=== PATIENT | male | born 1960 | race Two or more races ===

== ENCOUNTER 2016-05-09 19:07 | Inpatient (IN) | payer MEDICAID ==
[~2016-05-09] VITALS: Ht 172.7 cm; Wt 63.0 kg
[2016-05-09 19:30] VITALS: BP 92/60
[2016-05-09] MEDS ORDERED: AMANTADINE50 MG/5 ML GT (19:55)
[2016-05-09] MEDS ORDERED: AMLODIPINE BESYL5 MG GT (19:55)
[2016-05-09] MEDS ORDERED: CATAPRES0.1 MG GT (19:55)
[2016-05-09] MEDS ORDERED: LIORESAL20 MG GT (19:55)
[2016-05-09] MEDS ORDERED: Acetaminophen 650mg/20.3ml ONE (20:31)
[2016-05-09 20:37] LABS: MEAN CORPUSCULAR HEMOGLOBIN 31.6 PG (27.0-31.0); MEAN CORPUSCULAR HGB CONC 32.8 G/DL (32.0-36.0); MEAN CORPUSCULAR VOLUME 96 FL (80-99); MEAN PLATELET VOLUME 5.4 FL (6.5-10.1); PLATELET COUNT 239 K/UL (150-450); RED BLOOD COUNT 5.22 M/UL (4.70-6.10); RED CELL DISTRIBUTION WIDTH 13.6 % (11.6-14.8); WHITE BLOOD COUNT 18.2 K/UL (4.8-10.8)
[2016-05-09] MEDS ORDERED: Azithromycin 500 MG in NS 275 ML IV ONE (20:45)
[2016-05-09] MEDS ORDERED: cefTRIAXone 1 GM in NS 55 ML IVPB ONE (20:45)
[2016-05-09 20:48] LABS: ALANINE AMINOTRANSFERASE 160 U/L (3-41); ALBUMIN/GLOBULIN RATIO 0.8 (1.0-2.7); ANION GAP 18 (5-15); ASPARTATE AMINO TRANSFERASE 135 U/L (5-40); CALCIUM 9.4 mg/dL (8.6-10.2); CARBON DIOXIDE 23 mEQ/L (20-30); CHLORIDE 105 mEQ/L (98-107); CREATININE 0.7 mg/dL (0.7-1.2); GLOMERULAR FILTRATION RATE > 60 mL/min (>60); HEMOLYSIS 62; POTASSIUM 4.1 mEQ/L (3.4-4.9); SODIUM 146 mEQ/L (135-145); TOTAL PROTEIN 6.6 g/dL (6.6-8.7)
[2016-05-09 20:53] LABS: REFLEX LACTIC ACID YES OR NO YES
[2016-05-09 20:59] LABS: TROPONIN I < 0.30 ng/mL (<=0.30)
--- NOTE | 2016-05-09 21:10 | Emergency Room Report ---
History of Present Illness General Chief Complaint: Altered Level of Consciousness Source: Family Member, Medical Record Present Illness HPI 55 YO M sent from SNF for more altered than usual. Patient aphasic since CVA a few months ago, s/p trach and Gtube. Vitals significant for fever 104 [place], tachycardic, hypotensive. Patient incontinent of urine. Allergies: Coded Allergies: No Known Allergies (Unverified , 05/09/16) Patient History Past Medical History: CVA/TIA Past Surgical History: other - trach/PEG Pertinent Family History: unable to obtain Social History: Denies: alcohol use, drug use, smoking Immunizations: UTD Reviewed Nursing Documentation: PMH: Agreed, PSxH: Agreed Nursing Documentation-PMH Hx Hypertension: Yes Review of Systems All Other Systems: limited - aphasic since CVA Physical Exam Vital Signs Date Time Temp Pulse Resp B/P Pulse Ox O2 Delivery O2 Flow Rate FiO2 05/09/16 19:07 98.4 130 30 89/59 96 Trach Collar 4.0 Sp02 EP Interpretation: reviewed, abnormal General Appearance: normal inspection, well appearing, no apparent distress, alert, GCS 15, non-toxic Head: normocephalic, atraumatic Eyes: bilateral eye EOMI, bilateral eye PERRL ENT: normal ENT inspection, normal pharynx, no angioedema, other - trach mask in place. No mucous plugs Neck: normal inspection, full range of motion, supple, no bony tend Respiratory: normal inspection, chest non-tender, lungs clear, normal breath sounds, no rhonchi, no respiratory distress, no retraction, no accessory muscle use, no wheezing Cardiovascular #1: regular rate, rhythm, no edema Gastrointestinal: normal inspection, normal bowel sounds, non tender, soft, no guarding, no hernia, other - Gtube in place. No surrounding sign of infeciton Medical Decision Making Diagnostic Impression: Primary Impression: Altered level of consciousness Additional Impression: Sepsis Qualified Codes: A41.9 - Sepsis, unspecified organism ER Course 55 YO M from SNF for ?AMS. VS significant for SIRS. Unknown source. Likely UTI given SNF residence, incontinence Labs: Leuks 18k. H&H stable. Transaminitis. Bili normal Trop 0. Lactate 3.7 Empiric Abx and IVF given Hemodynamics improved after Abx, IVF, [place] tylenol UA pending Morales placement by RN Endorsed to Dr Becerril for tele admission at 934pm EKG Diagnostic Results Rate: tachycardiac Rhythm: NSR ST Segments: no acute changes ASA given to the pt in ED: No Rhythm Strip Diag. Results EP Interpretation: yes Rate: 80 Rhythm: NSR, no PVC's, no ectopy Chest X-Ray Diagnostic Results EP Interpretation: Yes Findings: no consolidation, no effusion, no pneumothorax, no acute cardiopulmonary disease Number of Views: 1 Last Vital Signs Date Time Temp Pulse Resp B/P Pulse Ox O2 Delivery O2 Flow Rate FiO2 05/09/16 19:07 98.4 130 30 89/59 96 Trach Collar 4.0 Status: improved Disposition: ADMITTED INPATIENT Condition: Serious Referrals: JARED BECERRIL (PCP) JULIANNA ALEXANDRA M.D. May 09, 2016 21:10
[2016-05-09] MEDS ORDERED: Acetaminophen 650mg/20.3ml NG ONE (21:15)
[2016-05-09] MEDS ORDERED: Azithromycin Inj IV ONE (21:40)
[2016-05-09 21:51] LABS: BAND NEUTROPHILS % (MANUAL) 1 % (0-8); BASOPHILS % (MANUAL) 1 % (0-2); EOSINOPHILS % (MANUAL) 2 % (0-3); LYMPHOCYTES % (MANUAL) 8 % (20-45); NEUTROPHILS % (MANUAL) 81 % (45-75); PLATELET ESTIMATE ADEQUATE; PLATELET MORPHOLOGY NORMAL; TOTAL CELLS COUNTED 100
[2016-05-09 22:01] LABS: APPEARANCE,URINE CLEAR; KETONES,URINE NEGATIVE (NEGATIVE); LEUKOCYTE ESTERASE ,URINE 1+ (NEGATIVE); NITRITE,URINE POSITIVE (NEGATIVE); PH,URINE 8 (4.5-8.0); PROTEIN,URINE 2+ (NEGATIVE); UROBILINOGEN,URINE NORMAL MG/DL (0.0-1.0)
[2016-05-09 22:08] LABS: AMORPHOUS SEDIMENT,UR FEW /LPF; BACTERIA,URINE MANY /HPF
[2016-05-09] MEDS ORDERED: DuoNeb 0.5-3(2.5)mg/3ml neb HHN PRN (22:30)
[2016-05-09] MEDS ORDERED: Miralax 17gm pkt ORAL PRN (22:30)
[2016-05-09] MEDS ORDERED: LORazepam Inj 2mg/ml 1ml IV PRN (22:30)
[2016-05-09] MEDS ORDERED: Morphine Sulfate 4mg/ml Inj IVP PRN (22:30)
[2016-05-09 22:51] VITALS: BP 98/68
[2016-05-09] MEDS ORDERED: Vancomycin 1 GM in D5W 275 ML IV SCH (23:00)
[2016-05-09 23:40] VITALS: BP 107/69
[2016-05-10] VITALS (9 sets, daily range): BP systolic 100–169; BP diastolic 65–84
[2016-05-10 08:24] LABS: MEAN CORPUSCULAR HEMOGLOBIN 32.3 PG (27.0-31.0); MEAN CORPUSCULAR HGB CONC 34.5 G/DL (32.0-36.0); MEAN CORPUSCULAR VOLUME 94 FL (80-99); MEAN PLATELET VOLUME 6.3 FL (6.5-10.1); PLATELET COUNT 276 K/UL (150-450); RED CELL DISTRIBUTION WIDTH 13.2 % (11.6-14.8)
[2016-05-10 08:37] LABS: ANION GAP 12 (5-15); CALCIUM 8.8 mg/dL (8.6-10.2); CARBON DIOXIDE 24 mEQ/L (20-30); CHLORIDE 108 mEQ/L (98-107); CREATININE 0.4 mg/dL (0.7-1.2); GLOMERULAR FILTRATION RATE > 60 mL/min (>60); HEMOLYSIS 8; PHOSPHORUS 3.2 mg/dL (2.5-4.8); POTASSIUM 4.1 mEQ/L (3.4-4.9); SODIUM 144 mEQ/L (135-145); WHITE BLOOD COUNT 29.4 K/UL (4.8-10.8)
--- NOTE | 2016-05-10 08:50 | Diagnostic Imaging Report ---
Indications: Altered mental status Technique: Spiral acquisitions obtained through the brain. Angled axial and coronal 5 x 5 mm slices were reconstructed. Total dose length product 1397 mGycm. CTDI vol(s) 70 mGy Comparison: None Findings: There is a right frontal ventriculostomy, tip injected at the level of the inferior septum pellucidum. There is marked enlargement of the ventricles, including the fourth. Normal caliber extra-axial CSF spaces. There is inferior frontal encephalomalacia. There is also encephalomalacia in the high parasagittal frontal lobes bilaterally, extending into the parietal lobes. There is a left frontotemporoparietal craniotomy/craniectomy defect. Aneurysm clips are seen in the left supraclinoid region. No acute hemorrhage. No mass effect or midline shift. There is a left maxillary sinus mucous retention cyst. Impression: Ventriculomegaly, despite the presence of peritoneal shunt. Shunt malfunction cannot be ruled out. Rectum and colon clinical findings, as well as comparison with any prior outside studies available Bilateral inferior and superior frontal encephalomalacia Evidence of prior left frontotemporoparietal craniotomy/craniectomy and aneurysm clipping Negative for acute intracranial bleed or mass effect Left maxillary sinus disease This agrees with the preliminary interpretation provided overnight by Dr. Goodwin The CT scanner at [facility] is accredited by the [employer] [place] and the scans are performed using protocols designed to limit radiation exposure to as low as reasonably achievable to attain images of sufficient resolution adequate for diagnostic evaluation.
[2016-05-10] MEDS ORDERED: Cefepime HCl 2 GM in D5W 110 ML IV SCH (09:00)
[2016-05-10] MEDS ORDERED: Heparin 5000 units/ml inj SUBQ SCH (09:00)
--- NOTE | 2016-05-10 10:23 | Pulmonolgy Critical Care Note ---
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4 78 24 98/68 97 Trach Collar 4.0 05/09/16 19:30 78 25 92/60 96 Trach Collar 4.0 05/09/16 19:07 98.4 130 30 89/59 96 Trach Collar 4.0 Status: somnolent Condition: critical HEENT: atraumatic, normocephalic Lungs: clear Heart: HR/BP unstable Abdomen: soft, active bowel sounds Extremities: no C/C/E, edema Decubiti: location, stage - sacral small Critical Care - Subjective ROS Limited/Unobtainable: Yes Interval Events: 55 year old male sent from SNF for more altered than usual. Patient aphasic since CVA a few months ago, s/p trach and Gtube. Patient had a fever 104 [place], tachycardic, hypotensive. EKG Rhythm: Sinus Rhythm FI02: 30 Fluids: 1/2 NS 50 cc.hour I&O: Intake and Output 05/09/16 05/10/16 19:00 07:00 Intake Total 150 ml Output Total 600 ml Balance -450 ml Intake IV Total 150 ml Output Urine Total 600 ml # Voids 1 CXR: SHAYY Labs: Laboratory Tests Test 05/09/16 19:55 05/09/16 21:25 05/09/16 22:00 05/09/16 23:25 White Blood Count 18.2 K/UL (4.8-10.8) H Red Blood Count 5.22 M/UL (4.70-6.10) Hemoglobin 16.5 G/DL (14.2-18.0) Hematocrit 50.2 % (42.0-52.0) Mean Corpuscular Volume 96 FL (80-99) Mean Corpuscular Hemoglobin 31.6 PG (27.0-31.0) H Mean Corpuscular Hemoglobin Concent 32.8 G/DL (32.0-36.0) Red Cell Distribution Width 13.6 % (11.6-14.8) Platelet Count 239 K/UL (150-450) Mean Platelet Volume 5.4 FL (6.5-10.1) L Neutrophils (%) (Auto) % (45.0-75.0) Lymphocytes (%) (Auto) % (20.0-45.0) Monocytes (%) (Auto) % (1.0-10.0) Eosinophils (%) (Auto) % (0.0-3.0) Basophils (%) (Auto) % (0.0-2.0) Differential Total Cells Counted 100 Neutrophils % (Manual) 81 % (45-75) H Lymphocytes % (Manual) 8 % (20-45) L Monocytes % (Manual) 7 % (1-10) Eosinophils % (Manual) 2 % (0-3) Basophils % (Manual) 1 % (0-2) Band Neutrophils 1 % (0-8) Platelet Estimate Adequate Platelet Morphology Normal Red Blood Cell Morphology Normal Sodium Level 146 mEQ/L (135-145) H Potassium Level 4.1 mEQ/L (3.4-4.9) Chloride Level 105 mEQ/L (98-107) Carbon Dioxide Level 23 mEQ/L (20-30) Anion Gap 18 (5-15) H Blood Urea Nitrogen 19 mg/dL (7-23) Creatinine 0.7 mg/dL (0.7-1.2) Estimat Glomerular Filtration Rate > 60 mL/min (>60) Glucose Level 139 mg/dL (74-106) H Lactic Acid Level 3.70 mmol/L (0.66-2.22) H 4.20 mmol/L (0.66-2.22) H Calcium Level 9.4 mg/dL (8.6-10.2) Total Bilirubin 0.9 mg/dL (0.0-1.2) Aspartate Amino Transf (AST/SGOT) 135 U/L (5-40) H Alanine Aminotransferase (ALT/SGPT) 160 U/L (3-41) H Alkaline Phosphatase 145 U/L (40-129) H Total Creatine Kinase 62 U/L (38-174) Creatine Kinase MB Pending Troponin I < 0.30 ng/mL (<=0.30) Total Protein 6.6 g/dL (6.6-8.7) Albumin 3.1 g/dL (3.5-5.2) L Globulin 3.5 g/dL Albumin/Globulin Ratio 0.8 (1.0-2.7) L Urine Color Yellow Urine Appearance Clear Urine pH 8 (4.5-8.0) Urine Specific [place] 1.010 (1.005-1.035) Urine Protein 2+ (NEGATIVE) H Urine Glucose (UA) Negative (NEGATIVE) Urine Ketones Negative (NEGATIVE) Urine Occult Blood Negative (NEGATIVE) Urine Nitrite Positive (NEGATIVE) H Urine Bilirubin Negative (NEGATIVE) Urine Urobilinogen Normal MG/DL (0.0-1.0) Urine Leukocyte Esterase 1+ (NEGATIVE) H Urine RBC 2-4 /HPF (0 - 0) H Urine WBC 5-10 /HPF (0 - 0) H Urine Squamous Epithelial Cells None /LPF (NONE/OCC) Urine Amorphous Sediment Few /LPF (NONE) H Urine Bacteria Many /HPF (NONE) H Ammonia 30 umol/L (16-60) Test 05/10/16 07:50 White Blood Count 29.4 K/UL (4.8-10.8) #*H Red Blood Count 4.20 M/UL (4.70-6.10) L Hemoglobin 13.6 G/DL (14.2-18.0) L Hematocrit 39.3 % (42.0-52.0) L Mean Corpuscular Volume 94 FL (80-99) Mean Corpuscular Hemoglobin 32.3 PG (27.0-31.0) H Mean Corpuscular Hemoglobin Concent 34.5 G/DL (32.0-36.0) Red Cell Distribution Width 13.2 % (11.6-14.8) Platelet Count 276 K/UL (150-450) Mean Platelet Volume 6.3 FL (6.5-10.1) L Neutrophils (%) (Auto) % (45.0-75.0) Lymphocytes (%) (Auto) % (20.0-45.0) Monocytes (%) (Auto) % (1.0-10.0) Eosinophils (%) (Auto) % (0.0-3.0) Basophils (%) (Auto) % (0.0-2.0) Neutrophils % (Manual) Pending Lymphocytes % (Manual) Pending Platelet Estimate Pending Platelet Morphology Pending Sodium Level 144 mEQ/L (135-145) Potassium Level 4.1 mEQ/L (3.4-4.9) Chloride Level 108 mEQ/L (98-107) H Carbon Dioxide Level 24 mEQ/L (20-30) Anion Gap 12 (5-15) Blood Urea Nitrogen 15 mg/dL (7-23) Creatinine 0.4 mg/dL (0.7-1.2) L Estimat Glomerular Filtration Rate > 60 mL/min (>60) Glucose Level 127 mg/dL (74-106) H Calcium Level 8.8 mg/dL (8.6-10.2) Phosphorus Level 3.2 mg/dL (2.5-4.8) Albumin 2.5 g/dL (3.5-5.2) SHAYLEE MONTALVO May 10, 2016 10:23
[2016-05-10 10:28] LABS: BAND NEUTROPHILS % (MANUAL) 11 % (0-8); BASOPHILS % (MANUAL) 0 % (0-2); EOSINOPHILS % (MANUAL) 0 % (0-3); LYMPHOCYTES % (MANUAL) 7 % (20-45); NEUTROPHILS % (MANUAL) 79 % (45-75); PLATELET ESTIMATE ADEQUATE; PLATELET MORPHOLOGY NORMAL; TOTAL CELLS COUNTED 100
--- NOTE | 2016-05-10 10:51 | Diagnostic Imaging Report ---
Indication: Shortness of breath Technique: One view of the chest Comparison: none Findings: There are some atelectatic bands at the left lung base. Lungs pleural spaces are otherwise clear. The heart size is normal. There is a tracheostomy. There is right sided ventriculoperitoneal shunt tubing incidentally noted Impression: No acute process. Findings as noted
--- NOTE | 2016-05-10 12:48 | Consultation ---
Consult Note Consult Note ID Dic # [id number] REFUGIO ROMERO M.D. May 10, 2016 12:48
[2016-05-10] MEDS ORDERED: CefTAZidime 2 GM in D5W 110 ML IV SCH (14:00)
[2016-05-10] MEDS ORDERED: Vancomycin 1 GM in D5W 275 ML IVPB SCH (14:00)
--- NOTE | 2016-05-10 14:17 | Diagnostic Imaging Report ---
APPROVED REPORT CPT Code: 40076 Present Symptoms Comments: R/O DVT BILATERAL: Imaging reveals a patent deep venous system bilaterally. There is no evidence of thrombus within the femoral, popliteal or tibial segments. The greater saphenous veins are also within normal limits. Doppler indicates normal spontaneous flow within these segments.
[2016-05-10] MEDS ORDERED: LORazepam Inj 2mg/ml 1ml IV PRN (16:00)
--- NOTE | 2016-05-10 16:39 | Wound Care Consultation ---
Wound Assessment Wound Assessment #1: Wound Present on Admission: Yes New Wound: No Status Change of Wound: No Wound Location Body Site Modif: left Wound Location Body Site: buttocks Wound Type: pressure ulcer Rocky Test: Does not Rocky Pressure Ulcer Stage: II Wound Thickness: Partial Thickness Wound Length: 0.5 Wound Width: 0.5 Wound Depth: 0.1 Percent of Wound [place]/Red: 100 Wound Drainage Description: Serosanguineous Wound Drainage Amount: Scant Wound Drainage Odor: None/Absent Tissue Surrounding Wound: Erythemic Wound General Appearance: Reddened Wound Assessment #2: Wound Number: #2 Wound Present on Admission: Yes New Wound: No Status Change of Wound: No Wound Location Body Site Modif: mid Wound Location Body Site: sacral Wound Type: pressure ulcer Rocky Test: Does not Rocky Pressure Ulcer Stage: deep tissue injury Wound Thickness: Full Thickness Wound Length: 4.0 Wound Width: 4.0 Wound Depth: utd Percent of Wound Purple/Maroon: 100 Wound Drainage Amount: None Wound Drainage Odor: None/Absent Tissue Surrounding Wound: Erythemic Wound General Appearance: Reddened Wound Comment #1 Sacral DTI pressure ulcer #2 Left buttock stage II pressure ulcer Recommendation -Keep clean and dry -Turn and reposition -Optimize nutrition -Offload both heels -Local wound care with Triad cream and dry drg -Low air loss overlay mattress -Assess and f/u Accordingly for any changes SALVADOR BENDER RN May 10, 2016 16:39
[2016-05-10] MEDS ORDERED: Morphine Sulfate 4mg/ml Inj IVP PRN (17:00)
[2016-05-10] MEDS ORDERED: DuoNeb 0.5-3(2.5)mg/3ml neb HHN PRN (17:00)
[2016-05-10] MEDS: metroNIDAZOLE 500mg 100 ML IVPB SCH (19:06)
--- NOTE | 2016-05-10 21:47 | Consultation ---
DATE OF CONSULTATION: INFECTIOUS DISEASE CONSULTATION CONSULTING PHYSICIAN: Iván Odonnell M.D. ATTENDING PHYSICIAN: Bette Raman M.D. REASON FOR CONSULTATION: Evaluation of the patient for fever, sepsis, and antibiotic management. HISTORY OF PRESENT ILLNESS: The patient is a 55-year-old old male with multiple medical problems who came to the hospital due to altered level of consciousness and fever. Infectious Disease consultation requested for evaluation of the patient and antibiotic management. PAST MEDICAL HISTORY: 1. History of CVA status post HISTORIOGRAPHY TEACHER shunt. 2. History of brain aneurysm. 3. Hypertension. 4. Status post trach. 5. Status post PEG. 6. History of bilateral contracture of extremities. MEDICATIONS: Intravenous cefepime and vancomycin. ALLERGIES: No known drug allergies. SOCIAL HISTORY: Resident of prison. FAMILY HISTORY: Unavailable. REVIEW OF SYSTEMS: Unobtainable. PHYSICAL EXAMINATION: VITAL SIGNS: Temperature 97.5, blood pressure 100/61, pulse 90, respiratory rate 18. HEENT: Mild pale conjunctivae. No icterus. NECK: No lymphadenopathy. CHEST: Coarse breathing sounds. HEART: S1 and S2. ABDOMEN: Soft. EXTREMITIES: No cyanosis. NEUROLOGIC: Awake and alert. LABORATORY DATA: White blood cell 29.4, hemoglobin 13.6, and platelets 276,000. UA shows 5 to 10 white blood cells and 2 to 4 red blood cells. BUN 15 and creatinine 0.4. AST and ALT 135 and 160, alkaline phosphatase 145. Doppler no evidence of DVT. Chest x ray, no acute process. CT of the head showed evidence of ventriculomegaly, evidence of HISTORIOGRAPHY TEACHER shunt. Bilateral inferior and superior frontal encephalomalacia, left maxillary sinus disease. ASSESSMENT: The patient is a 55-year-old male with multiple medical problems, who has been admitted to this medical center with leukocytosis, history of fever prior to admission and worsening mental status. Sepsis, bacteremia, urinary tract infection, and possible uremia is the most likely scenario; however, in view of having HISTORIOGRAPHY TEACHER shunt and CT findings, HISTORIOGRAPHY TEACHER shunt infection also is a consideration. PLAN: 1. We will continue patient on vancomycin and change cefepime to ceftazidime (high dose to cover possible ESTIMATOR P[employer]ARD BOXES infection. 2. Monitor cultures, blood, urine, and sputum. 3. Recommend Neurosurgery evaluation for tap of the HISTORIOGRAPHY TEACHER shunt. 4. Monitor CBC. 5. Monitor BNP. 6. Monitor clinical course. 7. We will send stool C. difficile toxin if the patient has diarrhea. 8. Ultrasound of the liver and hepatitis panel for evaluation of abnormal liver function tests. Based on those, we will do further recommendations. Thank you, Dr. Raman, for allowing me to participate in the care of this patient. I will follow the patient with you during this hospitalization. Iván Odonnell M.D. DR: Gallo JOB#: [id number] CC:
[2016-05-10] MEDS: CefTAZidime 2 GM in D5W 110 ML IV SCH (21:57)
[2016-05-10] MEDS: Heparin 5000 units/ml inj SUBQ SCH (21:59)
[2016-05-10] MEDS ORDERED: Miralax 17gm pkt ORAL PRN (22:30)
--- NOTE | 2016-05-10 23:37 | Progress Note ---
DATE: 05/10/2016 SUBJECTIVE: The patient is awake, alert, afebrile, and hemodynamically improved. The patient is nonverbal, but he feels and understands all the questions and answers by blinking or closing his eyes or moving his head from left to right. PHYSICAL EXAMINATION: VITAL SIGNS: Blood pressure is 106/72, his pulse is 96, respirations 20, and temperature 98.2 degrees. Repeat pulse is 86. HEENT: Eyes were normal. ENT, mucous membranes were moist and intact. NECK: Supple with no JVD without lymph nodes. Tracheostomy site is clean. LUNGS: Clear without rhonchi, rales, or wheezing. Secretions are small, thin, and pale yellow. HEART: Normal sounds with regular beats. There is no tachycardia at rest. ABDOMEN: Soft and nontender with normal bowel sounds. Gastrostomy site is clean. EXTREMITIES: Warm without cyanosis, clubbing, or edema. LABORATORY DATA: His hemoglobin is 13.6, hematocrit 39.3 with MCV of 94, WBC of 29.4, and platelets is 276,000. His BUN and creatinine is 15 and 0.4 respectively. Sodium is 144, potassium 4.1, chloride 108, and CO2 is 24. His glucose is 127. His calcium is 8.8. His phosphorus is 3.2. His albumin is 2.5. His venous duplex scan show patent deep venous system bilaterally. His chest x-ray show no active disease and no acute process. His CT scan of the head revealed evidence of left frontal temporal craniotomy and aneurysmal clipping, negative for acute intracranial bleed or mass effect. There is left maxillary sinus disease. There is bilateral inferior and superior frontal lobe encephalomalacia as well as a prior left temporoparietal craniotomy. His urinalysis show 5 to 10 WBC, 2 to 4 RBCs, and bacteria many. It is positive for nitrates and 1+ for leukocyte esterase. IMPRESSION AND PLAN: The patient , most probably urosepsis. Pulmonary outside sales consultant will be called to assist in the management of this case as well as Infectious Disease specialist. In addition, abdomen and pelvic ultrasound and imaging of the urinary and renal system will be taken. Currently, the patient is on vancomycin 1 g IV piggyback and ceftazidime 1 g q.8 h. We will change antibiotic to Zosyn 3.375 g IV piggyback q.6 h., metronidazole 500 mg IV piggyback q.8 h., and vancomycin 1 g IV piggyback q.24 h. Anna Becerril M.D. DR: TOM JOB#: [id number] CC:
[2016-05-11] MEDS: Vancomycin 1 GM in D5W 275 ML IVPB SCH ×2 (01:13→14:32)
[2016-05-11 04:00] VITALS: BP 125/85
[2016-05-11] MEDS: metroNIDAZOLE 500mg 100 ML IVPB SCH ×3 (04:08→20:55)
[2016-05-11] MEDS: CefTAZidime 2 GM in D5W 110 ML IV SCH ×3 (05:36→22:18)
[2016-05-11 06:53] LABS: MEAN CORPUSCULAR HEMOGLOBIN 32.7 PG (27.0-31.0); MEAN CORPUSCULAR HGB CONC 35.5 G/DL (32.0-36.0); MEAN CORPUSCULAR VOLUME 92 FL (80-99); MEAN PLATELET VOLUME 6.4 FL (6.5-10.1); PLATELET COUNT 242 K/UL (150-450); WHITE BLOOD COUNT 18.2 K/UL (4.8-10.8)
[2016-05-11 07:03] LABS: ALANINE AMINOTRANSFERASE 109 U/L (3-41); ALBUMIN/GLOBULIN RATIO 0.7 (1.0-2.7); ANION GAP 11 (5-15); ASPARTATE AMINO TRANSFERASE 93 U/L (5-40); CALCIUM 8.8 mg/dL (8.6-10.2); CARBON DIOXIDE 24 mEQ/L (20-30); CHLORIDE 101 mEQ/L (98-107); CREATININE 0.3 mg/dL (0.7-1.2); GLOMERULAR FILTRATION RATE > 60 mL/min (>60); HEMOLYSIS 4; MAGNESIUM 1.6 mg/dL (1.7-2.5); PHOSPHORUS 2.9 mg/dL (2.5-4.8); POTASSIUM 3.5 mEQ/L (3.4-4.9); SODIUM 136 mEQ/L (135-145); TOTAL PROTEIN 6.1 g/dL (6.6-8.7)
[2016-05-11 08:08] LABS: BAND NEUTROPHILS % (MANUAL) 0 % (0-8); BASOPHILS % (MANUAL) 0 % (0-2); EOSINOPHILS % (MANUAL) 1 % (0-3); LYMPHOCYTES % (MANUAL) 10 % (20-45); NEUTROPHILS % (MANUAL) 83 % (45-75); PLATELET ESTIMATE ADEQUATE; PLATELET MORPHOLOGY NORMAL; TOTAL CELLS COUNTED 100
[2016-05-11 08:30] VITALS: BP 121/81
[2016-05-11 08:36] VITALS: BP 121/81
[2016-05-11] MEDS: Heparin 5000 units/ml inj SUBQ SCH ×2 (10:05→21:01)
[2016-05-11 12:55] VITALS: BP_SYST 120; BP_DIAS 80; BP_DIAS 81
[2016-05-11 14:32] LABS: CKMB 2.8 ng/mL (< 6.7)
[2016-05-11 16:00] VITALS: BP 145/75
[2016-05-11 20:00] VITALS: BP 145/93
--- NOTE | 2016-05-11 21:59 | Pulmonology Progress Note ---
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, consultants, case management rn Subjective ROS Limited/Unobtainable: Yes Constitutional: Reports: anorexia, fatigue Neurologic: Reports: confusion, weakness Allergies: Coded Allergies: No Known Allergies (Unverified , 05/09/16) Objective Last 24 Hour Vital Signs Date Time Temp Pulse Resp B/P Pulse Ox O2 Delivery O2 Flow Rate FiO2 05/11/16 20:56 145/93 05/11/16 20:00 98.2 88 20 145/93 99 Trach Collar 8.0 35 05/11/16 19:51 99 Trach Collar 8.0 40 05/11/16 19:51 Trach Collar 8.0 40 05/11/16 16:00 97.5 82 19 145/75 98 Trach Collar 8.0 35 05/11/16 14:58 97.0 05/11/16 13:58 120/81 05/11/16 12:55 97.0 71 19 120/81 98 Trach Collar 5.0 71 05/11/16 12:55 97.0 71 19 120/80 98 Nasal Cannula 2.0 71 05/11/16 12:51 97.0 71 19 97 71 05/11/16 10:00 72 121/81 05/11/16 08:30 97.3 72 19 121/81 98 Trach Collar 5.0 72 05/11/16 07:45 Trach Collar 6.0 30 05/11/16 07:44 98 Trach Collar 6.0 30 05/11/16 05:30 125/85 05/11/16 04:00 97.6 81 18 125/85 98 Trach Collar 6.0 05/11/16 02:26 Trach Collar 05/11/16 02:26 97 Trach Collar 05/10/16 23:33 98.1 85 18 118/75 99 Trach Collar 6.0 Intake and Output 05/10/16 05/11/16 19:00 07:00 Intake Total 1825 ml 1210 ml Output Total 800 ml 2150 ml Balance 1025 ml -940 ml IV Total 1660 ml 1210 ml Tube Feeding 150 ml Other 15 ml Output Urine Total 800 ml 2150 ml # Bowel Movements 1 General Appearance: no acute distress HEENT: normocephalic, atraumatic, PERRL, status post trach Respiratory/Chest: chest wall non-tender, decreased breath sounds, accessory muscle use, rhonchi Cardiovascular: normal peripheral pulses, normal rate, regular rhythm, no JVD Abdomen: normal bowel sounds, soft, non tender, no organomegaly, non distended Genitourinary: normal external genitalia Extremities: no cyanosis Skin: rash, lesions Neurologic/Psychiatric: abnormal CN, disoriented, unresponsiveness, aphasia, depressed affect Microbiology Date/Time Source Procedure Growth Status 05/09/16 20:10 Blood Blood Culture - Preliminary NO GROWTH AFTER 24 HOURS Resulted 05/09/16 19:55 Blood Blood Culture - Preliminary NO GROWTH AFTER 24 HOURS Resulted 05/10/16 06:00 Wound Gram Stain - Final Resulted 05/10/16 06:00 Wound Wound Culture Pending Resulted 05/10/16 21:30 Stool Clostridium difficile Toxin Assay - Final Complete 05/09/16 21:25 Urine,Clean Catch Urine Culture - Preliminary Gram Negative Bacillus 1 Resulted Laboratory Tests 05/11/16 05:25: White Blood Count 18.2H, Red Blood Count 4.10L, Hemoglobin 13.4L, Hematocrit 37.8L, Mean Corpuscular Volume 92, Mean Corpuscular Hemoglobin 32.7H, Mean Corpuscular Hemoglobin Concent 35.5, Red Cell Distribution Width 13.0, Platelet Count 242, Mean Platelet Volume 6.4L, Neutrophils (%) (Auto) , Lymphocytes (%) ( Auto) , Monocytes (%) (Auto) , Eosinophils (%) (Auto) , Basophils (%) (Auto) , Differential Total Cells Counted 100, Neutrophils % (Manual) 83H, Lymphocytes % (Manual) 10L, Monocytes % (Manual) 6, Eosinophils % (Manual) 1, Basophils % ( Manual) 0, Band Neutrophils 0, Platelet Estimate Adequate, Platelet Morphology Normal, Red Blood Cell Morphology Normal, Sodium Level 136, Potassium Level 3.5 , Chloride Level 101, Carbon Dioxide Level 24, Anion Gap 11, Blood Urea Nitrogen 9, Creatinine 0.3L, Estimat Glomerular Filtration Rate > 60, Glucose Level 134H, Calcium Level 8.8, Phosphorus Level 2.9, Magnesium Level 1.6L, Total Bilirubin 0.8, Aspartate Amino Transf (AST/SGOT) 93H, Alanine Aminotransferase (ALT/SGPT) 109H, Alkaline Phosphatase 112, Total Protein 6.1L, Albumin 2.6L, Globulin 3.5, Albumin/Globulin Ratio 0.7L Current Medications Medications (Trade) Dose Ordered Sig/Lolly Route PRN Reason Start Time Stop Time Status Last Admin Dose Admin Acetaminophen (Tylenol) 650 mg Q4H PRN ORAL FEVER 05/10/16 18:30 06/09/16 18:29 Albuterol/ Ipratropium (DuoNeb 0.5-3(2.5)mg/3ml) 3 ml Q4H PRN HHN Shortness of Breath 05/10/16 17:00 05/15/16 16:59 Amlodipine Besylate (Norvasc) 5 mg DAILY GT 05/11/16 09:00 06/10/16 08:59 05/11/16 10:00 Baclofen (Lioresal) 20 mg EVERY 8 HOURS GT 05/10/16 22:00 06/09/16 21:59 05/11/16 20:56 Ceftazidime 2 gm/ Dextrose 110 ml @ 220 mls/hr Q8HR IV 05/10/16 22:00 05/17/16 21:59 05/11/16 13:58 Clonidine HCl (Catapres) 0.1 mg EVERY 8 HOURS GT 05/10/16 22:00 06/09/16 21:59 05/11/16 20:56 Dextrose (Dextrose 50%) STAT PRN IV Hypoglycemia 05/10/16 22:30 06/09/16 22:29 Heparin Sodium (Porcine) (Heparin 5000 units/ml) 5,000 units EVERY 12 HOURS SUBQ 05/10/16 21:00 06/09/16 20:59 05/11/16 21:01 Lorazepam (Ativan 2mg/ml 1ml) 2 mg Q2H PRN IV For Anxiety 05/10/16 16:00 05/17/16 15:59 Metronidazole (Flagyl) 100 ml @ 100 mls/hr Q8HR@0500,1300,2100 IVPB 05/10/16 19:00 05/17/16 18:59 05/11/16 20:55 Morphine Sulfate (Morphine Sulfate) 4 mg Q4H PRN IVP Severe Pain (Pain Scale 7-10) 05/10/16 17:00 05/17/16 16:59 Ondansetron HCl (Zofran) 4 mg Q6H PRN IVP Nausea & Vomiting 05/10/16 16:30 06/09/16 16:29 Polyethylene Glycol (Miralax) 17 gm DAILYPRN PRN ORAL Constipation 05/10/16 22:30 06/09/16 22:29 Sodium Chloride 1,000 ml @ 100 mls/hr Q10H IV 05/10/16 15:30 06/09/16 15:29 05/11/16 17:38 Vancomycin HCl 1 ea 1 ea DAILY PRN MISC PER RX PROTOCOL 05/11/16 09:00 06/10/16 08:59 Vancomycin HCl/ Dextrose (Vancomycin/D5W) 275 ml @ 183.3 mls/ hr Q12HR@0200,1400 IVPB 05/11/16 02:00 05/16/16 01:59 05/11/16 14:32 SHAYLEE MAYA May 11, 2016 21:59
[2016-05-12] VITALS (7 sets, daily range): BP systolic 103–133; BP diastolic 68–80
[2016-05-12] MEDS: Vancomycin 1 GM in D5W 275 ML IVPB SCH (02:00)
--- NOTE | 2016-05-12 02:58 | Progress Note ---
DATE: 05/11/2016 SUBJECTIVE: The patient is awake, alert, afebrile, and hemodynamically stable. PHYSICAL EXAMINATION: VITAL SIGNS: Blood pressure 118/75, his pulse 85, respirations 18, and temperature 98.1 degrees. HEENT: Eyes were normal. ENT, mucous membranes were moist and intact. NECK: Supple with no JVD without lymph nodes. Tracheostomy site is clean. LUNGS: Clear without rhonchi, rales, or wheezing. HEART: Normal sounds with regular beats. There is no S3, S4, or pericardial rub. ABDOMEN: Soft and nontender with normal bowel sounds. Gastrostomy site is clean. EXTREMITIES: Warm without cyanosis, clubbing, or edema. LABORATORY DATA: His hemoglobin is 13.4, hematocrit 37.8 with MCV of 92, WBC 18.2, and platelet [place] 242,000 [place] [address] yesterday. His BUN and creatinine is 9 and 0.3 respectively. His sodium is 133, potassium 3.5, chloride 101, CO2 24, and glucose 134. His calcium is 8.8. His phosphorus 2.9. His magnesium is 1.8. SGOT is 93, SGPT 109, and alkaline phosphatase 112. His albumin is 2.3 and total protein is 6.1. IMPRESSION: The patient has leukocytosis that appeared to be result of his decubitus ulcer Pulmonary urinalysis and abdominal ultrasound was not done yet. His WBC has decline yesterday and in addition to vancomycin and cefepime. The case has been discussed in detail with the fiscal specialist. Repeat laboratory tests will be done in the a.m. Anna Becerril M.D. DR: Fermin JOB#: [id number] CC:
[2016-05-12] MEDS: metroNIDAZOLE 500mg 100 ML IVPB SCH (04:02)
[2016-05-12] MEDS: CefTAZidime 2 GM in D5W 110 ML IV SCH (05:04)
[2016-05-12 06:30] LABS: EOSINOPHILS % (AUTO) 3.1 % (0.0-3.0); LYMPHOCYTES % (AUTO) 15.3 % (20.0-45.0); MEAN CORPUSCULAR HEMOGLOBIN 31.4 PG (27.0-31.0); MEAN CORPUSCULAR HGB CONC 34.3 G/DL (32.0-36.0); MEAN CORPUSCULAR VOLUME 92 FL (80-99); MEAN PLATELET VOLUME 6.1 FL (6.5-10.1); MONOCYTES % (AUTO) 7.3 % (1.0-10.0); NEUTROPHILS % (AUTO) 73.4 % (45.0-75.0); PLATELET COUNT 264 K/UL (150-450); RED BLOOD COUNT 4.52 M/UL (4.70-6.10); RED CELL DISTRIBUTION WIDTH 12.6 % (11.6-14.8); WHITE BLOOD COUNT 9.8 K/UL (4.8-10.8)
[2016-05-12 06:57] LABS: ANION GAP 14 (5-15); CARBON DIOXIDE 24 mEQ/L (20-30); CHLORIDE 101 mEQ/L (98-107); CREATININE 0.3 mg/dL (0.7-1.2); GLOMERULAR FILTRATION RATE > 60 mL/min (>60); HEMOLYSIS 3; POTASSIUM 3.3 mEQ/L (3.4-4.9); SODIUM 139 mEQ/L (135-145)
--- NOTE | 2016-05-12 07:47 | History and Physical Report ---
DATE OF ADMISSION: 05/09/2016 CHIEF COMPLAINT: This is the first admission to [facility] of this 55-year-old patient because of sepsis. HISTORY OF PRESENT ILLNESS: The patient is a resident of an extended care facility subacute unit, who has been in stable condition. Over the last several days, he is known to have several chronic medical syndrome, but has been stable on current medication. On the day of admission, he developed tachycardia, fever and tachypnea with progressively increasing respiratory distress and respiratory rate michael to 40. Sports Book Board Attendant were called. The patient was brought to [facility] ER and was admitted. PAST MEDICAL HISTORY: Several months ago, the patient has had subarachnoid hemorrhoid and bilateral CVA. He was brought to [facility] where he underwent immediately craniotomy. and clipping of the aneurysm was done. Following the surgery, the patient remained in coma, underwent tracheostomy, gastrostomy and was placed on mechanical ventilation. He was discharged several days ago to subacute unit at . In addition to this history, the patient is known to have COPD and hepatitis B and C, for which he did not receive any treatment. He has high blood pressure over the last several years. MEDICATIONS: The patient is on amlodipine 5 mg daily. He is on polyethylene glycol 17 g daily. He is on baclofen 20 mg b.i.d., clonidine 0.1 mg every eight hours. He is on heparin 5000 units subcutaneously q.12 h. He is on multiple p.r.n. medications to include acetomorphine, lorazepam, and sodium chloride. ALLERGIES: No known drug allergies. SOCIAL HISTORY: He is . He was born in [place]. He has been for many years prior to the appearance of the . He was unemployed. HABITS: The patient did smoke one pack a day for more than 30 years. He has a long history of alcoholism. No history of drug abuse. This information was given by his , one day prior to the present admission. FAMILY HISTORY: Medical history in this family is unknown. REVIEW OF SYSTEMS: The patient is unable to give any information regarding his state of health. PHYSICAL EXAMINATION: VITAL SIGNS: Blood pressure 107/67, his pulse is 60, respiration rate 19, and temperature 97.5 degrees. HEENT: Eyes were normal. Pupils were round, equal, and reactive to light. Sclerae was white. Conjunctiva was pale. Extraocular movements were normal. Temporal arteries were palpable bilaterally. There was bilateral temporal wasting. Visual quinonez to confrontation. Neglect sign could not be assessed. ENT, mucous membranes were not dehydrated. Auditory canals were clear and tympanic membranes could not be visualized. Nasal cavity was not congested. Nasal septum was intact. Soft palate was free of ulcerations. Pharynx, uvula could not be visualized. Tongue was moist, midline, and normally papillated. NECK: Supple. There was no goiter. No mass. No lymphadenopathy. There was no JVD. Carotid upstroke was 1+. Tracheostomy site was clean. LUNGS: Clear without rhonchi, rales, or wheezing. HEART: PMI was fifth left intercostal space in midclavicular line. There was normal S1 and normal S2. There was no murmur. No arrhythmia. No S3. No S4. No pericardial rub. ABDOMEN: Soft and nontender without organomegaly. There were no masses palpable. There was normal bowel sounds without bruits. There was no guarding. No rebound tenderness. No ascites. No hernia. No CVA tenderness. Liver span was 8 cm, mostly nontender. EXTREMITIES: No cyanosis, no clubbing, and no edema. Extremities were warm. NEUROLOGICAL: Reflexes in biceps, triceps, and brachioradialis were present. Patellar retinaculum were present. Plantar were in extension bilaterally. Cranial nerves II through XII were symmetric and equal. Cerebellar function, there was no tremor. No nystagmus. No extrapyramidal rigidity. Sensory exam to pinprick, cotton touch, and position difficult to assess, but probably normal. Motor strength was 4/5 against resistance in the left upper extremity and left lower extremity and 0-1 in the right upper extremity and right lower extremity. The patient is alert, attentive and by closing his eyes to indicate yes and he is moving his head from left to right to indicate no. LABORATORY AND DIAGNOSTIC DATA: His hemoglobin was 16.5, hematocrit of 50.2 with MCV of 66, WBC of 18.2, and platelet is 239,000. His BUN and creatinine is 15 and 0.4 respectively, his sodium is 144, potassium 4.1, chloride 106, and CO2 was 24. His calcium was 8.8. His phosphorus is 3.2 with albumin is 2.5. His ammonia is 30. His lactic acid increased from 3.7 to 4.2. he had clear. His urinalysis shows 5 to 10 WBC per high-power field and 2 to 4 RBC per high-power field. Venous duplex scan of lower extremity was negative. Chest x-ray showed no active disease. IMPRESSION AND PLAN: The patient has sepsis. The patient has tachycardia, fever and leukocytosis. He will be started on cefepime 1 g IV piggyback q.12 h., metronidazole 500 mg IV piggyback q. 8 h., and vancomycin 1 g IV piggyback q. 12 h. Pulmonary consultation and Infectious Disease industrial rehabilitation consultant was called to assist in the management of this case. Repeat laboratory tests will be done in the morning. Anna Becerril M.D. DR: CARLOTA JOB#: [id number] CC:
[2016-05-12] MEDS: Heparin 5000 units/ml inj SUBQ SCH ×2 (08:56→22:12)
--- NOTE | 2016-05-12 10:45 | Infectious Diseases Prog Note ---
Assessment/Plan Assessment/Plan A: The patient is a 55-year-old old male hx of Fever Sepsis, SP leukocytosis improving UTI Kleb VRE colonization CDiff neg Hep C Ab + Hx of CVA status post [employer] shunt CT: CT of the head showed evidence of ventriculomegaly,and Bilateral inferior and superior frontal encephalomalacia, left maxillary sinus disease. History of brain aneurysm HTN Status post trach. Status post PEG. History of bilateral contracture of extremities. no specialist to tap the [employer] reservoir [employer] shunt infection is less likely ( pt is improving ) PLAN: patient on vancomycin and ceftazidime d# 3 , change to Ancef Monitor cultures ( blood, urine, and sputum ) Monitor CBC. Monitor BNP Ultrasound of the liver Hep C PCR . Subjective Constitutional: Denies: anorexia, chills, drenching sweats, fatigue, fever, no symptoms, other Allergies: Coded Allergies: No Known Allergies (Unverified , 05/09/16) Objective Vital Signs Last 24 Hour Vital Signs Date Time Temp Pulse Resp B/P Pulse Ox O2 Delivery O2 Flow Rate FiO2 05/12/16 08:48 77 133/80 05/12/16 08:37 97.5 77 19 133/80 95 Trach Collar 5.0 77 05/12/16 07:58 98 Trach Collar 8.0 35 05/12/16 07:57 Trach Collar 6.0 35 05/12/16 06:21 97.0 05/12/16 05:21 120/78 05/12/16 04:00 97.0 79 20 120/78 98 Trach Collar 8.0 35 05/12/16 00:00 97.7 70 20 124/68 98 Trach Collar 8.0 35 05/11/16 20:56 145/93 05/11/16 20:00 98.2 88 20 145/93 99 Trach Collar 8.0 35 05/11/16 19:51 99 Trach Collar 8.0 40 05/11/16 19:51 Trach Collar 8.0 40 05/11/16 16:00 97.5 82 19 145/75 98 Trach Collar 8.0 35 05/11/16 13:58 120/81 05/11/16 12:55 97.0 71 19 120/81 98 Trach Collar 5.0 71 05/11/16 12:55 97.0 71 19 120/80 98 Nasal Cannula 2.0 71 05/11/16 12:51 97.0 71 19 97 71 Height (Feet): 5 Height (Inches): 8.00 Weight (Pounds): 139 HEENT: anicteric Respiratory/Chest: lungs clear Cardiovascular: regular rhythm Abdomen: no organomegaly Microbiology Date/Time Source Procedure Growth Status 05/09/16 20:10 Blood Blood Culture - Preliminary NO GROWTH AFTER 48 HOURS Resulted 05/09/16 19:55 Blood Blood Culture - Preliminary NO GROWTH AFTER 48 HOURS Resulted 05/10/16 06:00 Wound Gram Stain - Final Resulted 05/10/16 06:00 Wound Wound Culture Pending Resulted 05/10/16 00:00 Nasal Nares MRSA Culture - Final NO METHICILLIN RESISTANT STAPH AUREUS... Complete 05/10/16 21:30 Stool Clostridium difficile Toxin Assay - Final Complete 05/09/16 21:25 Urine,Clean Catch Urine Culture - Final Klebsiella Pneumoniae Complete 05/10/16 00:00 Rectum VRE Culture - Final Enterococcus Faecium - Vre Complete Laboratory Tests Test 05/12/16 00:50 05/12/16 06:05 Vancomycin Level Trough 8.9 ug/mL (5.0-12.0) White Blood Count 9.8 K/UL (4.8-10.8) Red Blood Count 4.52 M/UL (4.70-6.10) L Hemoglobin 14.2 G/DL (14.2-18.0) Hematocrit 41.3 % (42.0-52.0) L Mean Corpuscular Volume 92 FL (80-99) Mean Corpuscular Hemoglobin 31.4 PG (27.0-31.0) H Mean Corpuscular Hemoglobin Concent 34.3 G/DL (32.0-36.0) Red Cell Distribution Width 12.6 % (11.6-14.8) Platelet Count 264 K/UL (150-450) Mean Platelet Volume 6.1 FL (6.5-10.1) L Neutrophils (%) (Auto) 73.4 % (45.0-75.0) Lymphocytes (%) (Auto) 15.3 % (20.0-45.0) L Monocytes (%) (Auto) 7.3 % (1.0-10.0) Eosinophils (%) (Auto) 3.1 % (0.0-3.0) H Basophils (%) (Auto) 1.0 % (0.0-2.0) Sodium Level 139 mEQ/L (135-145) Potassium Level 3.3 mEQ/L (3.4-4.9) L Chloride Level 101 mEQ/L (98-107) Carbon Dioxide Level 24 mEQ/L (20-30) Anion Gap 14 (5-15) Blood Urea Nitrogen 8 mg/dL (7-23) Creatinine 0.3 mg/dL (0.7-1.2) L Estimat Glomerular Filtration Rate > 60 mL/min (>60) Glucose Level 129 mg/dL (74-106) H Calcium Level 9.0 mg/dL (8.6-10.2) Current Medications Medications (Trade) Dose Ordered Sig/Lolly Route PRN Reason Start Time Stop Time Status Last Admin Dose Admin Acetaminophen (Tylenol) 650 mg Q4H PRN ORAL FEVER 05/10/16 18:30 06/09/16 18:29 Albuterol/ Ipratropium (DuoNeb 0.5-3(2.5)mg/3ml) 3 ml Q4H PRN HHN Shortness of Breath 05/10/16 17:00 05/15/16 16:59 Amlodipine Besylate (Norvasc) 5 mg DAILY GT 05/11/16 09:00 06/10/16 08:59 05/12/16 08:48 Baclofen (Lioresal) 20 mg EVERY 8 HOURS GT 05/10/16 22:00 06/09/16 21:59 05/12/16 05:22 Ceftazidime/ Dextrose (Fortaz/D5W) 110 ml @ 220 mls/hr Q8HR IV 05/10/16 22:00 05/17/16 21:59 05/12/16 05:04 Clonidine HCl (Catapres) 0.1 mg EVERY 8 HOURS GT 05/10/16 22:00 06/09/16 21:59 05/12/16 05:21 Dextrose (Dextrose 50%) STAT PRN IV Hypoglycemia 05/10/16 22:30 06/09/16 22:29 Heparin Sodium (Porcine) (Heparin 5000 units/ml) 5,000 units EVERY 12 HOURS SUBQ 05/10/16 21:00 06/09/16 20:59 05/12/16 08:56 Lorazepam (Ativan 2mg/ml 1ml) 2 mg Q2H PRN IV For Anxiety 05/10/16 16:00 05/17/16 15:59 Metronidazole 100 ml @ 100 mls/hr Q8HR@0500,1300,2100 IVPB 05/10/16 19:00 05/17/16 18:59 05/12/16 04:02 Morphine Sulfate (Morphine Sulfate) 4 mg Q4H PRN IVP Severe Pain (Pain Scale 7-10) 05/10/16 17:00 05/17/16 16:59 Ondansetron HCl (Zofran) 4 mg Q6H PRN IVP Nausea & Vomiting 05/10/16 16:30 06/09/16 16:29 Polyethylene Glycol (Miralax) 17 gm DAILYPRN PRN ORAL Constipation 05/10/16 22:30 06/09/16 22:29 Sodium Chloride 1,000 ml @ 100 mls/hr Q10H IV 05/10/16 15:30 06/09/16 15:29 05/12/16 04:11 Vancomycin HCl 1 ea 1 ea DAILY PRN MISC PER RX PROTOCOL 05/11/16 09:00 06/10/16 08:59 Vancomycin HCl/ Dextrose (Vancomycin/D5W) 325 ml @ 162.5 mls/ hr Q12H IVPB 05/12/16 14:00 05/17/16 13:59 REFUGIO ROMERO M.D. May 12, 2016 10:45
--- NOTE | 2016-05-12 13:00 | Diagnostic Imaging Report ---
Indication: Abnormal liver function test, abdominal distention Technique: Vásquez-scale and duplex images of the upper abdomen were obtained Comparison: None Findings: . Gallbladder is unremarkable, without stones, wall thickening, nor pericholecystic fluid. Sonographic Canales's sign is negative. Common bile duct measures 2 mm in diameter. No intrahepatic biliary ductal dilatation. Liver demonstrates normal echogenicity, no focal abnormality. Portal vein and hepatic veins are patent.. Pancreas is unremarkable. Spleen is enlarged, measuring 14.7 cm long axis dimension. Left kidney measures 12.7 cm in length. Right kidney measures 13 cm length. Both kidneys demonstrate normal echogenicity. There is no hydronephrosis. No focal abnormality. . Non-aneurysmal abdominal aorta. Impression: Splenomegaly. Negative for gallstones, dilated ducts, or other acute or significant abnormality
[2016-05-12] MEDS: ceFAZolin sod 1 GM in D5W 55 ML IVPB SCH ×2 (13:30→22:25)
[2016-05-12] MEDS ORDERED: Vancomycin 1.5 GM/D5W 325 ML IVPB SCH ×2 (14:00)
--- NOTE | 2016-05-12 15:43 | Cardiology Report ---
APPROVED REPORT EKG Measurement Heart [id number] Normal sinus rhythm Possible Anterior infarct, age undetermined Abnormal ECG
--- NOTE | 2016-05-12 17:12 | Pulmonology Progress Note ---
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, 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, 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, 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 Subjective ROS Limited/Unobtainable: Yes Constitutional: Reports: anorexia, fatigue Neurologic: Reports: confusion, weakness Allergies: Coded Allergies: No Known Allergies (Unverified , 05/09/16) Objective Last 24 Hour Vital Signs Date Time Temp Pulse Resp B/P Pulse Ox O2 Delivery O2 Flow Rate FiO2 05/12/16 16:00 97.2 69 21 114/73 99 Trach Collar 8.0 30 05/12/16 14:23 97.5 05/12/16 13:24 114/77 05/12/16 12:30 97.5 72 19 114/77 95 Trach Collar 5.0 72 05/12/16 08:48 77 133/80 05/12/16 08:37 97.5 77 19 133/80 95 Trach Collar 5.0 77 05/12/16 07:58 98 Trach Collar 8.0 35 05/12/16 07:57 Trach Collar 6.0 35 05/12/16 05:21 120/78 05/12/16 04:00 97.0 79 20 120/78 98 Trach Collar 8.0 35 05/12/16 00:00 97.7 70 20 124/68 98 Trach Collar 8.0 35 05/11/16 20:56 145/93 05/11/16 20:00 98.2 88 20 145/93 99 Trach Collar 8.0 35 05/11/16 19:51 99 Trach Collar 8.0 40 05/11/16 19:51 Trach Collar 8.0 40 Intake and Output 05/11/16 05/12/16 19:00 07:00 Intake Total 1785 ml 1280 ml Output Total 2100 ml 3000 ml Balance -315 ml -1720 ml Intake Free Water 100 ml 50 ml IV Total 1595 ml 1110 ml Tube Feeding 90 ml 120 ml Output Urine Total 2100 ml 3000 ml # Voids 2 General Appearance: no acute distress HEENT: normocephalic, atraumatic, PERRL Respiratory/Chest: chest wall non-tender, decreased breath sounds, accessory muscle use Cardiovascular: normal peripheral pulses, normal rate, regular rhythm, no gallop/murmur, no JVD Abdomen: normal bowel sounds, soft, non tender, no organomegaly Genitourinary: normal external genitalia Extremities: no cyanosis Skin: rash, lesions Neurologic/Psychiatric: responsive, abnormal CN, disoriented, aphasia Microbiology Date/Time Source Procedure Growth Status 05/09/16 20:10 Blood Blood Culture - Preliminary NO GROWTH AFTER 48 HOURS Resulted 05/09/16 19:55 Blood Blood Culture - Preliminary NO GROWTH AFTER 48 HOURS Resulted 05/10/16 06:00 Wound Gram Stain - Final Resulted 05/10/16 06:00 Wound Culture - Preliminary Staphylococcus Aureus Resulted 05/10/16 00:00 Nasal Nares MRSA Culture - Final NO METHICILLIN RESISTANT STAPH AUREUS... Complete 05/10/16 21:30 Stool Clostridium difficile Toxin Assay - Final Complete 05/09/16 21:25 Urine,Clean Catch Urine Culture - Final Klebsiella Pneumoniae Complete 05/10/16 00:00 Rectum VRE Culture - Final Enterococcus Faecium - Vre Complete Laboratory Tests 05/12/16 00:50: Vancomycin Level Trough 8.9 05/12/16 06:05: White Blood Count 9.8, Red Blood Count 4.52L, Hemoglobin 14.2, Hematocrit 41.3L , Mean Corpuscular Volume 92, Mean Corpuscular Hemoglobin 31.4H, Mean Corpuscular Hemoglobin Concent 34.3, Red Cell Distribution Width 12.6, Platelet Count 264, Mean Platelet Volume 6.1L, Neutrophils (%) (Auto) 73.4, Lymphocytes ( %) (Auto) 15.3L, Monocytes (%) (Auto) 7.3, Eosinophils (%) (Auto) 3.1H, Basophils (%) (Auto) 1.0, Sodium Level 139, Potassium Level 3.3L, Chloride Level 101, Carbon Dioxide Level 24, Anion Gap 14, Blood Urea Nitrogen 8, Creatinine 0.3L, Estimat Glomerular Filtration Rate > 60, Glucose Level 129H, Calcium Level 9.0, Hepatitis C Antibody [Pending], Hepatitis C RNA (PCR) IUs/ml [Pending], Hepatitis C RNA (PCR) log IUs/ml [Pending] Current Medications Medications (Trade) Dose Ordered Sig/Lolly Route PRN Reason Start Time Stop Time Status Last Admin Dose Admin Acetaminophen (Tylenol) 650 mg Q4H PRN ORAL FEVER 05/10/16 18:30 06/09/16 18:29 Albuterol/ Ipratropium (DuoNeb 0.5-3(2.5)mg/3ml) 3 ml Q4H PRN HHN Shortness of Breath 05/10/16 17:00 05/15/16 16:59 Amlodipine Besylate (Norvasc) 5 mg DAILY GT 05/11/16 09:00 06/10/16 08:59 05/12/16 08:48 Baclofen (Lioresal) 20 mg EVERY 8 HOURS GT 05/10/16 22:00 06/09/16 21:59 05/12/16 13:24 Cefazolin Sodium/ Dextrose (Ancef/D5W) 55 ml @ 110 mls/hr Q8HR IVPB 05/12/16 14:00 05/19/16 13:59 05/12/16 13:30 Clonidine HCl (Catapres) 0.1 mg EVERY 8 HOURS GT 05/10/16 22:00 06/09/16 21:59 05/12/16 13:24 Dextrose (Dextrose 50%) STAT PRN IV Hypoglycemia 05/10/16 22:30 06/09/16 22:29 Heparin Sodium (Porcine) (Heparin 5000 units/ml) 5,000 units EVERY 12 HOURS SUBQ 05/10/16 21:00 06/09/16 20:59 05/12/16 08:56 Lorazepam (Ativan 2mg/ml 1ml) 2 mg Q2H PRN IV For Anxiety 05/10/16 16:00 05/17/16 15:59 Morphine Sulfate (Morphine Sulfate) 4 mg Q4H PRN IVP Severe Pain (Pain Scale 7-10) 05/10/16 17:00 05/17/16 16:59 Ondansetron HCl (Zofran) 4 mg Q6H PRN IVP Nausea & Vomiting 05/10/16 16:30 06/09/16 16:29 Polyethylene Glycol 17 gm 17 gm DAILYPRN PRN ORAL Constipation 05/10/16 22:30 06/09/16 22:29 Potassium Chloride (KCl 10% 40mEq Oral solution) 40 meq Q4H NG 05/12/16 17:15 05/12/16 21:16 UNV Sodium Chloride (0.45% NS 1000ml) 1,000 ml @ 100 mls/hr Q10H IV 05/10/16 15:30 06/09/16 15:29 05/12/16 14:00 SHAYLEE MAYA May 12, 2016 17:12
[2016-05-12] MEDS: KCl 10% 40mEq/30ml liquid NG SCH ×2 (18:06→22:26)
[2016-05-12] MEDS ORDERED: 1/2 NS 1000ml IV ONE (20:21)
[2016-05-12] MEDS ORDERED: NS Irrig 1000ml ONE (20:21)
[2016-05-12] MEDS ORDERED: NS 550ML IV ONE (20:21)
[2016-05-12] MEDS ORDERED: Tubing IV Secondary IV ONE (20:21)
--- NOTE | 2016-05-12 23:08 | Progress Note ---
DATE: 05/12/2016 SUBJECTIVE: The patient is awake alert, attentive with eye contact and facial expression . PHYSICAL EXAMINATION: VITAL SIGNS: Blood pressure 114/73, pulse 69, respirations 21, and temperature 97.2 degrees. HEENT: Eyes were normal. ENT, mucous membranes were moist and intact. NECK: Supple with no JVD without lymph nodes. Tracheostomy site is clean. LUNGS: Clear without rhonchi, rales, or wheezing. Secretions are small, thin, and beltran. HEART: Normal sounds with regular beat. There are no S3, S4, or pericardial rub. ABDOMEN: Soft and nontender with normal bowel sounds. Gastrostomy site is clean. EXTREMITIES: Warm without cyanosis, clubbing, or edema. LABORATORY AND DIAGNOSTIC DATA: His hemoglobin is 14.2, hematocrit 41.3 with MCV of 92, WBC 9.8, and platelets 264,000. His BUN and creatinine is 8 and 0.3 respectively. His sodium is 139, potassium 3.3, chloride 101, CO2 24, and glucose 129. Calcium is 9.0. Laboratory tests was done and there was no pathological finding. . Urine culture revealed Klebsiella pneumoniae. Blood culture from 05/09/2016 negative up to 48 hours. IMPRESSION: The patient is alert, afebrile without tachycardia, without leukocytosis. Repeat laboratory test will be done in the a.m. The patient is reported to be discharged over the next several days. Anna Becerril M.D. DR: Fermin JOB#: [id number] CC:
[2016-05-13 00:13] VITALS: BP 118/74
[2016-05-13 04:00] VITALS: BP 118/73
[2016-05-13] MEDS: ceFAZolin sod 1 GM in D5W 55 ML IVPB SCH ×3 (06:35→21:31)
[2016-05-13 07:19] LABS: BASOPHILS % (AUTO) 1.1 % (0.0-2.0); EOSINOPHILS % (AUTO) 5.6 % (0.0-3.0); MEAN CORPUSCULAR HGB CONC 34.6 G/DL (32.0-36.0); MEAN CORPUSCULAR VOLUME 92 FL (80-99); MEAN PLATELET VOLUME 5.8 FL (6.5-10.1); MONOCYTES % (AUTO) 9.3 % (1.0-10.0); PLATELET COUNT 269 K/UL (150-450); RED CELL DISTRIBUTION WIDTH 12.9 % (11.6-14.8); WHITE BLOOD COUNT 7.7 K/UL (4.8-10.8)
[2016-05-13 08:10] LABS: ALANINE AMINOTRANSFERASE 132 U/L (3-41); ALBUMIN/GLOBULIN RATIO 0.8 (1.0-2.7); ANION GAP 17 (5-15); ASPARTATE AMINO TRANSFERASE 143 U/L (5-40); CALCIUM 9.1 mg/dL (8.6-10.2); CARBON DIOXIDE 22 mEQ/L (20-30); CHLORIDE 102 mEQ/L (98-107); CREATININE 0.4 mg/dL (0.7-1.2); GLOMERULAR FILTRATION RATE > 60 mL/min (>60); HEMOLYSIS 9; MAGNESIUM 1.8 mg/dL (1.7-2.5); PHOSPHORUS 3.7 mg/dL (2.5-4.8); SODIUM 141 mEQ/L (135-145); TOTAL PROTEIN 6.5 g/dL (6.6-8.7)
[2016-05-13 08:34] VITALS: BP 110/73
[2016-05-13] MEDS: Heparin 5000 units/ml inj SUBQ SCH ×2 (09:32→21:26)
[2016-05-13 12:30] VITALS: BP 121/80
[2016-05-13] MEDS ORDERED: ANCEF1 GM/50 ML IVPB (15:52)
[2016-05-13 16:00] VITALS: BP 114/77
--- NOTE | 2016-05-13 17:34 | Pulmonology Progress Note ---
Assessment/Plan Assessment/Plan ASSESSMENT sepsis UTI s/p recent CVA chronic respiratory failure tracheostomy statues dysphagia G tube decub ulcer, POA ( sacral, L buttock) hepatitic C infection elevated transaminase hx of L craniotomy Hx of brain aneurysm HTN r/o ORTHOTIST shunt malfunction PLAN OF CARE MS floor IVF abx ID follows stool C dif negative urine + Klebsiella blood cx negative ; get sputum cx CXR negative O2 via TC titrate to keep sat above 92% trach care ; pulmonary toilet hepatitis panel + hep C ; check viral load Venous Duplex BLE negative abdominal US + splenomegaly, no gallstones, no dieted ducts CT head + ventriculomegaly, persistent despite ORTHOTIST shunt, ? malfunction apparently no specialist in [facility] to tap ORTHOTIST reservoir ORTHOTIST infection less likely given the fact that leukocytosis resolved pain management bowel regimen DVT prophylaxis case discussed and evaluated by supervising physician Subjective Allergies: Coded Allergies: No Known Allergies (Unverified , 05/09/16) Subjective leukocytosis resolved. afebrile LFT trending down Objective Last 24 Hour Vital Signs Date Time Temp Pulse Resp B/P Pulse Ox O2 Delivery O2 Flow Rate FiO2 05/13/16 16:00 98.4 71 20 114/77 99 Trach Collar 05/13/16 14:41 97.9 05/13/16 13:42 121/80 05/13/16 12:30 97.9 71 19 121/80 97 Trach Collar 05/13/16 09:37 95 Trach Collar 10.0 30 05/13/16 09:35 Trach Collar 30 05/13/16 09:24 63 110/73 05/13/16 08:34 97.2 63 19 110/73 99 Trach Collar 05/13/16 06:00 118/73 05/13/16 04:00 97.3 57 21 118/73 92 Room Air 05/13/16 00:13 97.0 57 19 118/74 90 Trach Collar 05/12/16 22:00 103/69 05/12/16 20:00 99.1 66 22 103/69 96 Trach Collar 10.0 30 05/12/16 19:03 98 Trach Collar 8.0 35 05/12/16 19:03 Trach Collar 6.0 35 Intake and Output 05/12/16 05/13/16 19:00 07:00 Intake Total 1475 ml 475 ml Output Total 1500 ml 1850 ml Balance -25 ml -1375 ml Intake Free Water 100 ml IV Total 1255 ml 355 ml Tube Feeding 120 ml 120 ml Output Urine Total 1500 ml 1850 ml # Voids 2 # Bowel Movements 1 General Appearance: no acute distress HEENT: status post trach - FiO2 30% Respiratory/Chest: chest wall non-tender, normal breath sounds, no respiratory distress Cardiovascular: normal peripheral pulses, normal rate, regular rhythm, no JVD Abdomen: normal bowel sounds, soft, non tender, non distended, other - G tube Extremities: no edema Neurologic/Psychiatric: abnormal gait - bedridden , other - awake, not resposnive ; Left side weakness, spastic LE Microbiology Date/Time Source Procedure Growth Status 05/10/16 21:30 Stool Clostridium difficile Toxin Assay - Final Complete Laboratory Tests 05/13/16 05:15: White Blood Count 7.7, Red Blood Count 4.60L, Hemoglobin 14.7, Hematocrit 42.5, Mean Corpuscular Volume 92, Mean Corpuscular Hemoglobin 32.0H, Mean Corpuscular Hemoglobin Concent 34.6, Red Cell Distribution Width 12.9, Platelet Count 269, Mean Platelet Volume 5.8L, Neutrophils (%) (Auto) 61.0, Lymphocytes (%) (Auto) 23.0, Monocytes (%) (Auto) 9.3, Eosinophils (%) (Auto) 5.6H, Basophils (%) (Auto ) 1.1, Sodium Level 141, Potassium Level 4.0, Chloride Level 102, Carbon Dioxide Level 22, Anion Gap 17H, Blood Urea Nitrogen 9, Creatinine 0.4L, Estimat Glomerular Filtration Rate > 60, Glucose Level 126H, Calcium Level 9.1, Phosphorus Level 3.7, Magnesium Level 1.8, Total Bilirubin 0.6, Aspartate Amino Transf (AST/SGOT) 143H, Alanine Aminotransferase (ALT/SGPT) 132H, Alkaline Phosphatase 118, Total Protein 6.5L, Albumin 2.9L, Globulin 3.6, Albumin/ Globulin Ratio 0.8L Current Medications Medications (Trade) Dose Ordered Sig/Lolly Route PRN Reason Start Time Stop Time Status Last Admin Dose Admin Acetaminophen (Tylenol) 650 mg Q4H PRN ORAL FEVER 05/10/16 18:30 06/09/16 18:29 Albuterol/ Ipratropium (DuoNeb 0.5-3(2.5)mg/3ml) 3 ml Q4H PRN HHN Shortness of Breath 05/10/16 17:00 05/15/16 16:59 Amlodipine Besylate (Norvasc) 5 mg DAILY GT 05/11/16 09:00 06/10/16 08:59 05/13/16 09:24 Baclofen (Lioresal) 20 mg EVERY 8 HOURS GT 05/10/16 22:00 06/09/16 21:59 05/13/16 13:42 Cefazolin Sodium/ Dextrose (Ancef/D5W) 55 ml @ 110 mls/hr Q8HR IVPB 05/12/16 14:00 05/19/16 13:59 05/13/16 13:42 Clonidine HCl (Catapres) 0.1 mg EVERY 8 HOURS GT 05/10/16 22:00 06/09/16 21:59 05/13/16 13:42 Dextrose (Dextrose 50%) STAT PRN IV Hypoglycemia 05/10/16 22:30 06/09/16 22:29 Heparin Sodium (Porcine) (Heparin 5000 units/ml) 5,000 units EVERY 12 HOURS SUBQ 05/10/16 21:00 06/09/16 20:59 05/13/16 09:32 Lorazepam (Ativan 2mg/ml 1ml) 2 mg Q2H PRN IV For Anxiety 05/10/16 16:00 05/17/16 15:59 Morphine Sulfate (Morphine Sulfate) 4 mg Q4H PRN IVP Severe Pain (Pain Scale 7-10) 05/10/16 17:00 05/17/16 16:59 Ondansetron HCl (Zofran) 4 mg Q6H PRN IVP Nausea & Vomiting 05/10/16 16:30 06/09/16 16:29 Polyethylene Glycol 17 gm 17 gm DAILYPRN PRN ORAL Constipation 05/10/16 22:30 06/09/16 22:29 Sodium Chloride (0.45% NS 1000ml) 1,000 ml @ 100 mls/hr Q10H IV 05/10/16 15:30 06/09/16 15:29 05/13/16 09:00 Sarah Calvo NP ([facility]) May 13, 2016 17:34
--- NOTE | 2016-05-13 17:52 | Infectious Diseases Prog Note ---
Assessment/Plan Assessment/Plan A: The patient is a 55-year-old old male hx of Fever Sepsis, SP leukocytosis SP UTI Kleb VRE colonization CDiff neg Hep C Ab + Splenomegaly. Hx of CVA status post COMPENSATION DIRECTOR shunt CT: CT of the head showed evidence of ventriculomegaly,and Bilateral inferior and superior frontal encephalomalacia, left maxillary sinus disease. History of brain aneurysm HTN Status post trach. Status post PEG. History of bilateral contracture of extremities. no specialist to tap the COMPENSATION DIRECTOR reservoir COMPENSATION DIRECTOR shunt infection is less likely ( pt is improving ) PLAN: patient cont Ancef d# 2 / ( 22 SP vancomycin and ceftazidime d# 3 ) Monitor cultures ( blood ) Monitor CBC. Monitor BNP Hep C PCR . Subjective Constitutional: Denies: anorexia, chills, drenching sweats, fatigue, fever, no symptoms, other Allergies: Coded Allergies: No Known Allergies (Unverified , 05/09/16) Objective Vital Signs Last 24 Hour Vital Signs Date Time Temp Pulse Resp B/P Pulse Ox O2 Delivery O2 Flow Rate FiO2 05/13/16 16:00 98.4 71 20 114/77 99 Trach Collar 05/13/16 14:41 97.9 05/13/16 13:42 121/80 05/13/16 12:30 97.9 71 19 121/80 97 Trach Collar 05/13/16 09:37 95 Trach Collar 10.0 30 05/13/16 09:35 Trach Collar 30 05/13/16 09:24 63 110/73 05/13/16 08:34 97.2 63 19 110/73 99 Trach Collar 05/13/16 06:00 118/73 05/13/16 04:00 97.3 57 21 118/73 92 Room Air 05/13/16 00:13 97.0 57 19 118/74 90 Trach Collar 05/12/16 22:00 103/69 05/12/16 20:00 99.1 66 22 103/69 96 Trach Collar 10.0 30 05/12/16 19:03 98 Trach Collar 8.0 35 05/12/16 19:03 Trach Collar 6.0 35 Height (Feet): 5 Height (Inches): 8.00 Weight (Pounds): 139 HEENT: atraumatic Respiratory/Chest: lungs clear Cardiovascular: regular rhythm Abdomen: non distended Microbiology Date/Time Source Procedure Growth Status 1/31/17 21:30 Stool Clostridium difficile Toxin Assay - Final Complete Laboratory Tests Test 05/13/16 05:15 White Blood Count 7.7 K/UL (4.8-10.8) Red Blood Count 4.60 M/UL (4.70-6.10) L Hemoglobin 14.7 G/DL (14.2-18.0) Hematocrit 42.5 % (42.0-52.0) Mean Corpuscular Volume 92 FL (80-99) Mean Corpuscular Hemoglobin 32.0 PG (27.0-31.0) H Mean Corpuscular Hemoglobin Concent 34.6 G/DL (32.0-36.0) Red Cell Distribution Width 12.9 % (11.6-14.8) Platelet Count 269 K/UL (150-450) Mean Platelet Volume 5.8 FL (6.5-10.1) L Neutrophils (%) (Auto) 61.0 % (45.0-75.0) Lymphocytes (%) (Auto) 23.0 % (20.0-45.0) Monocytes (%) (Auto) 9.3 % (1.0-10.0) Eosinophils (%) (Auto) 5.6 % (0.0-3.0) H Basophils (%) (Auto) 1.1 % (0.0-2.0) Sodium Level 141 mEQ/L (135-145) Potassium Level 4.0 mEQ/L (3.4-4.9) Chloride Level 102 mEQ/L (98-107) Carbon Dioxide Level 22 mEQ/L (20-30) Anion Gap 17 (5-15) H Blood Urea Nitrogen 9 mg/dL (7-23) Creatinine 0.4 mg/dL (0.7-1.2) L Estimat Glomerular Filtration Rate > 60 mL/min (>60) Glucose Level 126 mg/dL (74-106) H Calcium Level 9.1 mg/dL (8.6-10.2) Phosphorus Level 3.7 mg/dL (2.5-4.8) Magnesium Level 1.8 mg/dL (1.7-2.5) Total Bilirubin 0.6 mg/dL (0.0-1.2) Aspartate Amino Transf (AST/SGOT) 143 U/L (5-40) H Alanine Aminotransferase (ALT/SGPT) 132 U/L (3-41) H Alkaline Phosphatase 118 U/L (40-129) Total Protein 6.5 g/dL (6.6-8.7) L Albumin 2.9 g/dL (3.5-5.2) L Globulin 3.6 g/dL Albumin/Globulin Ratio 0.8 (1.0-2.7) L Current Medications Medications (Trade) Dose Ordered Sig/Lolly Route PRN Reason Start Time Stop Time Status Last Admin Dose Admin Acetaminophen (Tylenol) 650 mg Q4H PRN ORAL FEVER 05/10/16 18:30 06/09/16 18:29 Albuterol/ Ipratropium (DuoNeb 0.5-3(2.5)mg/3ml) 3 ml Q4H PRN HHN Shortness of Breath 05/10/16 17:00 05/15/16 16:59 Amlodipine Besylate (Norvasc) 5 mg DAILY GT 05/11/16 09:00 06/10/16 08:59 05/13/16 09:24 Baclofen (Lioresal) 20 mg EVERY 8 HOURS GT 05/10/16 22:00 06/09/16 21:59 05/13/16 13:42 Cefazolin Sodium/ Dextrose (Ancef/D5W) 55 ml @ 110 mls/hr Q8HR IVPB 05/12/16 14:00 05/19/16 13:59 05/13/16 13:42 Clonidine HCl (Catapres) 0.1 mg EVERY 8 HOURS GT 05/10/16 22:00 06/09/16 21:59 05/13/16 13:42 Dextrose (Dextrose 50%) STAT PRN IV Hypoglycemia 05/10/16 22:30 06/09/16 22:29 Heparin Sodium (Porcine) (Heparin 5000 units/ml) 5,000 units EVERY 12 HOURS SUBQ 05/10/16 21:00 06/09/16 20:59 05/13/16 09:32 Lorazepam (Ativan 2mg/ml 1ml) 2 mg Q2H PRN IV For Anxiety 05/10/16 16:00 05/17/16 15:59 Morphine Sulfate (Morphine Sulfate) 4 mg Q4H PRN IVP Severe Pain (Pain Scale 7-10) 05/10/16 17:00 2/7/17 16:59 Ondansetron HCl (Zofran) 4 mg Q6H PRN IVP Nausea & Vomiting 05/10/16 16:30 06/09/16 16:29 Polyethylene Glycol 17 gm 17 gm DAILYPRN PRN ORAL Constipation 05/10/16 22:30 06/09/16 22:29 Sodium Chloride (0.45% NS 1000ml) 1,000 ml @ 100 mls/hr Q10H IV 05/10/16 15:30 06/09/16 15:29 05/13/16 09:00 REFUGIO ROMERO M.D. May 13, 2016 17:52
[2016-05-13 20:00] VITALS: BP 138/94
[2016-05-14] VITALS: BP 132/86
[2016-05-14 04:00] VITALS: BP 117/77
[2016-05-14] MEDS: ceFAZolin sod 1 GM in D5W 55 ML IVPB SCH (05:27)
[2016-05-14 08:18] VITALS: BP 119/84
[2016-05-14] MEDS: Heparin 5000 units/ml inj SUBQ SCH (08:32)
--- NOTE | 2016-05-14 08:56 | Pulmonology Progress Note ---
Assessment/Plan Assessment/Plan ASSESSMENT sepsis UTI s/p recent CVA chronic respiratory failure tracheostomy statues dysphagia G tube decub ulcer, POA ( sacral, L buttock) hepatitic C infection elevated transaminase hx of L craniotomy Hx of brain aneurysm HTN r/o AUTO JOB ESTIMATOR shunt malfunction PLAN OF CARE MS floor IVF abx ID follows stool C dif negative urine + Klebsiella blood cx negative ; get sputum cx CXR negative O2 via TC titrate to keep sat above 92% trach care ; pulmonary toilet hepatitis panel + hep C ; check viral load Venous Duplex BLE negative abdominal US + splenomegaly, no gallstones, no dieted ducts CT head + ventriculomegaly, persistent despite AUTO JOB ESTIMATOR shunt, ? malfunction apparently no specialist in [facility] to tap AUTO JOB ESTIMATOR reservoir AUTO JOB ESTIMATOR infection less likely given the fact that leukocytosis resolved pain management bowel regimen DVT prophylaxis dc today to SNF, continue abx as per ID recommendations case discussed and evaluated by supervising physician Subjective Allergies: Coded Allergies: No Known Allergies (Unverified , 05/09/16) Subjective leukocytosis resolved. afebrile LFT trending down Objective Last 24 Hour Vital Signs Date Time Temp Pulse Resp B/P Pulse Ox O2 Delivery O2 Flow Rate FiO2 05/14/16 08:31 71 119/84 05/14/16 08:23 71 119/84 05/14/16 08:18 119/84 05/14/16 08:17 98.0 71 20 100 Trach Collar 35 05/14/16 07:32 Trach Collar 8.0 30 05/14/16 07:32 98 Trach Collar 8.0 30 05/14/16 06:37 97.7 05/14/16 05:39 117/77 05/14/16 04:00 97.3 69 18 117/77 98 Room Air 05/14/16 00:00 97.7 79 18 132/86 97 Room Air 05/13/16 21:22 138/94 05/13/16 20:00 97.5 86 18 138/94 97 Trach Collar 6.0 05/13/16 19:08 99 Trach Collar 10.0 30 05/13/16 19:08 Trach Collar 8.0 30 05/13/16 16:00 98.4 71 20 114/77 99 Trach Collar 05/13/16 13:42 121/80 05/13/16 12:30 97.9 71 19 121/80 97 Trach Collar 05/13/16 09:37 95 Trach Collar 10.0 30 05/13/16 09:35 Trach Collar 30 05/13/16 09:24 63 110/73 Intake and Output 05/13/16 05/14/16 19:00 07:00 Intake Total 1405 ml 845 ml Output Total 1550 ml 975 ml Balance -145 ml -130 ml Intake Free Water 100 ml IV Total 1255 ml 655 ml Tube Feeding 150 ml 90 ml Output Urine Total 1550 ml 975 ml Objective General Appearance: no acute distress HEENT: status post trach , Portex#6, FiO2 35% Respiratory/Chest: chest wall non-tender, normal breath sounds, no respiratory distress Cardiovascular: normal peripheral pulses, normal rate, regular rhythm, no JVD Abdomen: normal bowel sounds, soft, non tender, non distended, G tube Extremities: no edema Neurologic/Psychiatric: abnormal gait - bedridden , other - awake, not resposnive ; Left side weakness, spastic LE Current Medications Medications (Trade) Dose Ordered Sig/Lolly Route PRN Reason Start Time Stop Time Status Last Admin Dose Admin Acetaminophen (Tylenol) 650 mg Q4H PRN ORAL FEVER 05/10/16 18:30 06/09/16 18:29 Albuterol/ Ipratropium (DuoNeb 0.5-3(2.5)mg/3ml) 3 ml Q4H PRN HHN Shortness of Breath 05/10/16 17:00 05/15/16 16:59 Amlodipine Besylate (Norvasc) 5 mg DAILY GT 05/11/16 09:00 06/10/16 08:59 05/14/16 08:31 Baclofen (Lioresal) 20 mg EVERY 8 HOURS GT 05/10/16 22:00 06/09/16 21:59 05/14/16 05:38 Cefazolin Sodium/ Dextrose (Ancef/D5W) 55 ml @ 110 mls/hr Q8HR IVPB 05/12/16 14:00 05/19/16 13:59 05/14/16 05:27 Clonidine HCl (Catapres) 0.1 mg EVERY 8 HOURS GT 05/10/16 22:00 06/09/16 21:59 05/14/16 05:39 Dextrose (Dextrose 50%) STAT PRN IV Hypoglycemia 05/10/16 22:30 06/09/16 22:29 Heparin Sodium (Porcine) (Heparin 5000 units/ml) 5,000 units EVERY 12 HOURS SUBQ 05/10/16 21:00 06/09/16 20:59 05/14/16 08:32 Lorazepam (Ativan 2mg/ml 1ml) 2 mg Q2H PRN IV For Anxiety 05/10/16 16:00 05/17/16 15:59 Morphine Sulfate (Morphine Sulfate) 4 mg Q4H PRN IVP Severe Pain (Pain Scale 7-10) 05/10/16 17:00 05/17/16 16:59 Ondansetron HCl (Zofran) 4 mg Q6H PRN IVP Nausea & Vomiting 05/10/16 16:30 06/09/16 16:29 Polyethylene Glycol 17 gm 17 gm DAILYPRN PRN ORAL Constipation 05/10/16 22:30 06/09/16 22:29 Sodium Chloride (0.45% NS 1000ml) 1,000 ml @ 100 mls/hr Q10H IV 05/10/16 15:30 06/09/16 15:29 05/13/16 23:30 [facility] ([facility])Sarah NP May 14, 2016 08:56
--- NOTE | 2016-05-14 10:00 | Infectious Diseases Prog Note ---
Assessment/Plan Assessment/Plan ASSESSMENT: 55 y/o male with: // K.pneumoniae UTI // Left maxillary sinus disease // HCV Ab(+), PCR pending with elevated LFTs - worse - US: Splenomegaly. Negative for gallstones, dilated ducts, or other acute or significant abnormality // Negative C.difficile // Leukocytosis - resolved, afebrile // Acute encephalopathy r/o VPS malfunction, infection - no NSY available to tap shunt - CT Head: Ventriculomegaly, despite the presence of peritoneal shunt. Shunt malfunction cannot be ruled out. Bilateral inferior and superior frontal encephalomalacia. Evidence of prior left frontotemporoparietal craniotomy/ craniectomy and aneurysm clipping. 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[place] Subjective Allergies: Coded Allergies: No Known Allergies (Unverified , 05/09/16) Subjective remains afebrile no NSY to tap shunt Objective Vital Signs Last 24 Hour Vital Signs Date Time Temp Pulse Resp B/P Pulse Ox O2 Delivery O2 Flow Rate FiO2 05/14/16 08:31 71 119/84 05/14/16 08:23 71 119/84 05/14/16 08:18 119/84 05/14/16 08:17 98.0 71 20 100 Trach Collar 35 05/14/16 07:32 Trach Collar 8.0 30 05/14/16 07:32 98 Trach Collar 8.0 30 05/14/16 06:37 97.7 05/14/16 05:39 117/77 05/14/16 04:00 97.3 69 18 117/77 98 Room Air 05/14/16 00:00 97.7 79 18 132/86 97 Room Air 05/13/16 21:22 138/94 05/13/16 20:00 97.5 86 18 138/94 97 Trach Collar 6.0 05/13/16 19:08 99 Trach Collar 10.0 30 05/13/16 19:08 Trach Collar 8.0 30 05/13/16 16:00 98.4 71 20 114/77 99 Trach Collar 05/13/16 13:42 121/80 05/13/16 12:30 97.9 71 19 121/80 97 Trach Collar Height (Feet): 5 Height (Inches): 8.00 Weight (Pounds): 139 General Appearance: no acute distress Respiratory/Chest: no respiratory distress Cardiovascular: normal rate, regular rhythm Abdomen: normal bowel sounds, soft, non tender, non distended Current Medications Medications (Trade) Dose Ordered Sig/Lolly Route PRN Reason Start Time Stop Time Status Last Admin Dose Admin Acetaminophen (Tylenol) 650 mg Q4H PRN ORAL FEVER 05/10/16 18:30 06/09/16 18:29 Albuterol/ Ipratropium (DuoNeb 0.5-3(2.5)mg/3ml) 3 ml Q4H PRN HHN Shortness of Breath 05/10/16 17:00 05/15/16 16:59 Amlodipine Besylate (Norvasc) 5 mg DAILY GT 05/11/16 09:00 06/10/16 08:59 05/14/16 08:31 Baclofen (Lioresal) 20 mg EVERY 8 HOURS GT 05/10/16 22:00 06/09/16 21:59 05/14/16 05:38 Cefazolin Sodium/ Dextrose (Ancef/D5W) 55 ml @ 110 mls/hr Q8HR IVPB 05/12/16 14:00 05/19/16 13:59 05/14/16 05:27 Clonidine HCl (Catapres) 0.1 mg EVERY 8 HOURS GT 05/10/16 22:00 06/09/16 21:59 05/14/16 05:39 Dextrose (Dextrose 50%) STAT PRN IV Hypoglycemia 05/10/16 22:30 06/09/16 22:29 Heparin Sodium (Porcine) (Heparin 5000 units/ml) 5,000 units EVERY 12 HOURS SUBQ 05/10/16 21:00 06/09/16 20:59 05/14/16 08:32 Lorazepam (Ativan 2mg/ml 1ml) 2 mg Q2H PRN IV For Anxiety 05/10/16 16:00 05/17/16 15:59 Morphine Sulfate (Morphine Sulfate) 4 mg Q4H PRN IVP Severe Pain (Pain Scale 7-10) 05/10/16 17:00 05/17/16 16:59 Ondansetron HCl (Zofran) 4 mg Q6H PRN IVP Nausea & Vomiting 05/10/16 16:30 06/09/16 16:29 Polyethylene Glycol 17 gm 17 gm DAILYPRN PRN ORAL Constipation 05/10/16 22:30 06/09/16 22:29 Sodium Chloride (0.45% NS 1000ml) 1,000 ml @ 100 mls/hr Q10H IV 05/10/16 15:30 06/09/16 15:29 05/14/16 09:36 CAROL HUERTA May 14, 2016 10:00
[2016-05-14] MEDS ORDERED: 1/2 NS 1000ml IV ONE ×2 (10:59→12:39)
[2016-05-14 12:05] VITALS: BP 122/82
--- NOTE | 2016-05-16 08:25 | Discharge Summary ---
Discharge Summary Hospital Course Date of Admission May 09, 2016 at 20:38 Date of Discharge May 14, 2016 at 12:40 Admitting Diagnosis Altered Mental Status HPI Rayo Rodriguez is a 55 year old male who was admitted on May 09, 2016 at 20:38 for Altered Mental Status Hospital Course dc summary dictated #[id number] Discharge Medications Continued Medications: Amantadine HCl (Amantadine) 50 Mg/5 Ml Solution 100 MG GT TWICE A DAY, ML Amlodipine Besylate* (Amlodipine Besylate*) 5 Mg Tablet 5 MG GT DAILY, TAB Baclofen (Baclofen) 20 Mg Tablet 20 MG GT EVERY 8 HOURS, TAB Cefazolin Sod (Cefazolin 1 gm-D5w Bag) 1 Gm/50 Ml Piggyback 1 GM IVPB Q8H for 5 Days, BAG Clonidine Hcl* (Catapres*) 0.1 Mg Tablet 0.1 MG GT EVERY 8 HOURS, TAB Discharge Condition Upon Discharge: stable Discharge Disposition Patient was discharged to SNF/Subacute Facility(03) Discharge Diagnoses: Umesh (Denise)Sarah NP May 16, 2016 08:25
--- NOTE | 2016-05-16 21:39 | Discharge Summary 2 SIG ---
DATE OF ADMISSION: 05/09/2016 DATE OF DISCHARGE: 05/14/2016 REASON FOR ADMISSION: 55-year-old male was sent from the [facility] facility for altered level of consciousness. The patient aphasic, status post tracheostomy, had a G-tube. The patient appeared to be more altered than usual to the nursing staff , who sent him for evaluation. Workup in the emergency room revealed fever 104 per rectum, tachycardia, hypertension. In addition leukocytosis was 18, hemoglobin and hematocrit were stable. The patient noted to have transaminitis. Bilirubin is normal. Troponin negative. Lactate 3.7. The patient started on urinalysis consistent with urinary tract infection. Septic workup initiated. The patient started on IV fluids and antibiotics, hemodynamically improved after IV fluids and Tylenol. EKG reveals sinus rhythm, no acute changes. No ectopy. No premature ventricular contraction. Chest x-ray revealed no consolidation, no effusion, no pneumothorax, no acute cardiopulmonary disease. The patient admitted as inpatient for further management. ADMITTING DIAGNOSES: 1. Sepsis. 2. Urinary tract infection. 3. Chronic respiratory failure with tracheostomy status. 4. Dysphagia. 5. G-tube. 6. History of cerebrovascular accident. HOSPITAL COURSE: The patient was on Med/Surg floor. The patient started on IV antibiotics. ID specialist followed. Urine culture grew Klebsiella. Stool for C. difficile was negative. Blood culture were negative. Chest x-ray was negative. Oxygen provided via trach collar and titrated to keep saturation above 92%. Tracheostomy care provided. Pulmonary toilet provided. Stable respiratory status , at baseline. Due to transaminitis, hepatitis panel was checked and revealed a hepatitis C. Viral load still pending. Venous duplex bilateral bilateral lower extremities was negative. Abdominal ultrasound revealed splenomegaly but no gallstones, no dilated ducts. CT of the head revealed ventriculomegaly persistent despite KIL[employer] MAINTENANCE shunt, questionable malfunction; however, there was no specialist in [facility] to tap [employer] reservoir. per ID, [employer] infection less likely given the fact that leukocytosis resolved with antibiotic treatment, Pain management provided. Bowel regimen provided. DVT prophylaxis provided. The patient had decubiti present on admission: sacral and left buttock Wound care provided as per wound care nurse recommendations, . Strict aspiration precaution maintained. The patient received a G-tube feedings via G tube, able to tolerate well. DVT prophylaxis provided. The patient was discharged back to fdc facility. DISCHARGE DIAGNOSIS: sepsis UTI s/p recent CVA chronic respiratory failure tracheostomy status dysphagia, G tube status decub ulcer, POA ( sacral, L buttock) hepatitis C infection elevated transaminase hx of L craniotomy Hx of brain aneurysm HTN possible K[employer]TENAN[employer] shunt malfunction DISCHARGE MEDICATIONS: See medication reconciliation list. DISCHARGE INSTRUCTIONS: The patient discharged to fdc facility. FOLLOWUP: Follow up with medical doctor at the facility. Recommended outpatient followup for hepatitis C . Bette Raman M.D. I have been assigned to dictate discharge summary on this account and I was not involved in the patient's management. Sarah Michaudaureliano N.PGabriela DR: Narayan JOB#: [id number] CC: SONG
[2016-05-20 13:12] LABS: HEP C VIRUS RNA (LOG IU/ML) 6.408 (.); HEPATITIS C QUANT 2556620 IU/mL (.)
== END 2016-05-14 12:40 | DRG 720 ==
LOC: EDBD 19:07 → EMR 20:20 → 2E 20:38 → EDBEDREQ 05-10 01:33 → 2E 05-10 02:41 → 2W 05-10 07:00 → 4W 05-10 15:04
DX: A41.9 Sepsis, unspecified organism (principal); G93.40 Encephalopathy, unspecified; L89.159 Pressure ulcer of sacral region, unspecified stage; L89.322 Pressure ulcer of left buttock, stage 2; J96.10 Chronic respiratory failure, unspecified whether with hypoxia or hypercapnia; Z43.0 Encounter for attention to tracheostomy; J44.9 Chronic obstructive pulmonary disease, unspecified; R13.10 Dysphagia, unspecified; I10 Essential (primary) hypertension; Z98.2 Presence of cerebrospinal fluid drainage device; N39.0 Urinary tract infection, site not specified; Z43.1 Encounter for attention to gastrostomy; B19.20 Unspecified viral hepatitis C without hepatic coma; B96.1 Klebsiella pneumoniae [K. pneumoniae] as the cause of diseases classified elsewhere; Z86.73 Personal history of transient ischemic attack (TIA), and cerebral infarction without residual deficits; J32.0 Chronic maxillary sinusitis; Z87.891 Personal history of nicotine dependence
CPT/HCPCS: 36415; 70450; 71010; 76700; 80048; 80053; 80069; 80202; 81003; 82140; 82550; 82553; 83605; 83735; 84100; 84484; 85007; 85025; 86705; 86709; 86803; 87040; 87070; 87081; 87086; 87181; 87205; 87340; 87493; 87522; 93005; 93970; 94760

== ENCOUNTER 2016-06-09 21:38 | Emergency (ER) | payer MEDICAID ==
[~2016-06-09] VITALS: Ht 177.8 cm; Wt 77.1 kg
[~2016-06-09 21:38] MED LIST: AMANTADINE50 MG/5 ML GT; AMLODIPINE BESYL5 MG GT; ANCEF1 GM/50 ML IVPB; CATAPRES0.1 MG GT; LIORESAL20 MG GT
--- NOTE | 2016-06-09 21:43 | Emergency Room Report ---
History of Present Illness General Source: Medical Record, EMS, PMD Present Illness HPI 55 YO M BIBEMS for concern for FORENSIC SPECIALIST shunt malfunction. Per EMS, SNF RNs concern was "head is softer than usual." Per Dr Becerril, unlikely malfunction because patient is improving clinically. If CT shows hydrocephalus, recommends transfer for higher level of care. Allergies: Coded Allergies: No Known Allergies (Unverified , 05/09/16) Patient History Past Medical History: see triage record, old chart reviewed Past Surgical History: other - FORENSIC SPECIALIST shunt Pertinent Family History: unable to obtain Social History: Denies: alcohol use, drug use, smoking Immunizations: UTD Reviewed Nursing Documentation: PMH: Agreed, PSxH: Agreed Nursing Documentation-PMH Hx Cardiac Problems: Yes Hx Hypertension: Yes Hx Cancer: No Hx Gastrointestinal Problems: No Hx Neurological Problems: Yes Hx Cerebrovascular Accident: Yes Hx Neurologic Surgery: Yes Hx Brain Shunt: Yes Review of Systems All Other Systems: limited - Unable to obtain, non-verbal Physical Exam Sp02 EP Interpretation: reviewed, normal General Appearance: normal inspection, well appearing, no apparent distress, alert Head: atraumatic ENT: normal ENT inspection, hearing grossly normal, normal voice Neck: normal inspection, full range of motion, supple, no bony tend Respiratory: normal inspection, lungs clear, normal breath sounds, no respiratory distress, no retraction, no wheezing Cardiovascular #1: regular rate, rhythm, no edema Gastrointestinal: normal inspection, normal bowel sounds, non tender, soft, no guarding, no hernia Genitourinary: no CVA tenderness Musculoskeletal: normal inspection, back normal, normal range of motion, Cathy' s Sign negative Neurologic: normal inspection, alert, responsive, speech normal Psychiatric: normal inspection, judgement/insight normal, mood/affect normal Skin: normal inspection, normal color, no rash Medical Decision Making Diagnostic Impression: Primary Impression: FORENSIC SPECIALIST (ventriculoperitoneal) shunt status ER Course CT head unchanged from previous one on 05/09. VSS. Afebrile is bedside, also endorses improved clinically. States patient "likely depressed." As per discussion with Dr Becerril, will DC back to [facility] since CT is unchanged. Unlikely FORENSIC SPECIALIST shunt malfunction at this time. Status: improved Disposition: [facility] JULIANNA ALEXANDRA M.D. Jun 09, 2016 21:43
[2016-06-09 21:54] VITALS: BP 113/84
[2016-06-09] MEDS ORDERED: ALBUTEROL2.5 MG/3 M INH (22:07)
[2016-06-09] MEDS ORDERED: AMANTADINE100 M2 GT (22:08)
[2016-06-09] MEDS ORDERED: PERIDEX 0.12% O15 ML ORO (22:09)
[2016-06-09] MEDS ORDERED: COLACE100 MG GT (22:10)
[2016-06-09] MEDS ORDERED: FAMOTIDINE20 MG GT (22:11)
[2016-06-09] MEDS ORDERED: HEPARIN SO5000 UNIT2 SUBQ (22:13)
[2016-06-09] MEDS ORDERED: ACIDOPHILUS1 EACH GT (22:13)
[2016-06-09] MEDS ORDERED: LEVOTHYROXINE50 MCG GT (22:14)
[2016-06-09] MEDS ORDERED: MILK OF MA400 MG/51 GT (22:15)
[2016-06-09] MEDS ORDERED: LISINOPRIL20 MG GT (22:15)
[2016-06-09] MEDS ORDERED: MULTI-DELYN237 ML GT (22:16)
[2016-06-09] MEDS ORDERED: TYLENOL EXTRA500 MG GT (22:18)
[2016-06-09] MEDS ORDERED: UTI-STAT L3875 MG/31 GT (22:19)
[2016-06-09] MEDS ORDERED: VITAMIN D400 INTLU GT (22:20)
[2016-06-09] MEDS ORDERED: VITAMIN C500 M1 GT (22:20)
[2016-06-09] MEDS ORDERED: ZINC SULFATE220 M1 GT (22:21)
[2016-06-09 22:51] VITALS: BP 110/79
[2016-06-09 23:51] VITALS: BP 115/81
[2016-06-09 23:53] VITALS: BP 115/81
--- NOTE | 2016-06-10 09:33 | Diagnostic Imaging Report ---
Indications: Altered mental status Technique: Continuous helical CT imaging of the brain was performed with automatic exposure control on a Siemens sensation [address] scanner. Axial and coronal images were reconstructed at 5 mm slice thickness and interval. CTDI volume(s): 70 mGy Total DLP: 1407 mGy-cm Findings: Comparison: 05/09/2016 Symmetric low attenuation/parenchymal loss anterior aspects bilateral frontal lobes. Confluent low attenuation bilateral cerebral periventricular and deep white matter. Ventriculoperitoneal shunt in place, intracranial vault via right frontal zeke hole craniotomy, traverses frontal horn of right lateral ventricle, tip abutting septum pellucidum. Low-attenuation surrounds the intraparenchymal shunt segment. Ventricles diffusely dilated. Aneurysm clip left anterior aspect suprasellar cistern. Old left frontotemporal craniotomy defects. No evidence of mass or hemorrhage, mass effect, midline shift, or increased intracranial pressure. Bone window images are otherwise unremarkable. Polypoid soft tissue defect left maxillary sinus. Remainder visualized paranasal sinuses and mastoid air cells are clear. All findings unchanged. IMPRESSION: Hydrocephalus despite ventriculoperitoneal shunt in place, unchanged from previous exam. Still, shunt malfunction should be considered. Recommend obtaining prior outside examinations for comparison.. Bilateral periventricular and deep cerebral white matter low attenuation, nonspecific, likely chronic microvascular ischemic. An element of transependymal migration of edema due to obstructive hydrocephalus cannot be excluded. See above recommendation. Bifrontal chronic encephalomalacia Evidence of previous left craniotomy, cerebral artery aneurysm clipping Left maxillary sinus polyp versus retention cyst This correlates with [facility] preliminary report. The CT scanner at [facility] is accredited by the [place] [employer] and the scans are performed using protocols designed to limit radiation exposure to as low as reasonably achievable to attain images of sufficient resolution adequate for diagnostic evaluation.
== END 2016-06-10 ==
LOC: EDBD 21:38 → EMR 22:02
DX: Z98.2 Presence of cerebrospinal fluid drainage device (principal); Z86.73 Personal history of transient ischemic attack (TIA), and cerebral infarction without residual deficits; I10 Essential (primary) hypertension
CPT/HCPCS: 70450; 99284